=== PATIENT | male | born 1960 | race Caucasian/White ===

== ENCOUNTER 2024-07-04 18:09 | Inpatient (IN) ==
--- NOTE | 2024-07-04 19:10 | Emergency Department Note ---
Impression & Plan Cellulitis of foot associated with diabetes mellitus, Diabetes mellitus type 2 with complications ED Provider Note CHIEF COMPLAINT: Right foot cellulitis HISTORY OF PRESENTING ILLNESS: Patient is a 63-year-old male presents the emergency department today for complaints of right foot cellulitis that is not improving after 2 antibiotics. This started 2 and half weeks ago. The patient is a diabetic and reports a neuropathy in his bilateral feet. He was put on cefadroxil and clarithromycin. He finished the cefadroxil however just started the clarithromycin 2 days ago. He denies any fevers or chills. He denies chest pain, sob, breathing difficulties, abdominal pain, headache, fevers/chills, blood in stool or urine, any recent illness, or any recent travel. REVIEW OF SYSTEMS: See HPI for pertinent positives and pertinent negatives. ALLERGIES: No known allergy MEDICATIONS: See below PAST MEDICAL HISTORY: See above PHYSICAL EXAM: VITALS: Vitals are noted on the nurse's note and reviewed by myself. GENERAL: Non toxic, in no acute distress, non-diaphoretic. SKIN: Capillary refill <2 sec. EYES: PERRLA. EOMI. Conjunctivae without injection, sclerae without icterus. NOSE: Patent without discharge. MOUTH: Mucous membranes moist. Uvula midline. Airway patent. NECK: Supple without nuchal rigidity. HEART: Regular rate and rhythm without murmurs gallops or rubs. LUNGS: Clear to auscultation bilaterally without wheezes, rales or rhonchi. No retractions or accessory muscle use. ABDOMEN: Positive bowel sounds x 4. Normal tympanic percussion. Soft, nontender to palpation. No masses or hepatosplenomegaly. Castanon sign negative. No CVA tenderness. No guarding, rigidity, or rebound tenderness. No focal RLQ or LLQ tenderness. MUSCULOSKELETAL: No gross musculoskeletal defects. NEURO: Patient was alert and oriented. No focal neurological deficits. DIFFERENTIAL DIAGNOSIS: Cellulitis, fracture, sepsis, septic joint, among other. ED COURSE AND MEDICAL DECISION MAKING: HISTORY FROM INDEPENDENT HISTORIAN: History was provided by the patient and his son and his . I examined the patient for complaints of right foot cellulitis. A physical exam and history were performed. Nursing notes, EMR, and medication list were personally reviewed. MEDICATIONS GIVEN: The patient declined anything for pain. MONITOR: Continuous traffic monitor specialist: Order was placed for continuous traffic monitor specialist. Patient was placed on the traffic monitor specialist and continuous pulse ox. Patient was noted to be in normal sinus rhythm at an initial rate of 80 bpm per my interpretation. INTERPRETATION OF LABS: An IV lock was placed and labs were drawn. I interpreted the labs with full lab results as below in the lab section of this note. Laboratory results pertinent to the emergent complaint are discussed in the MDM section below. The patient was advised to follow up with their PCP and/or specialist(s) for further outpatient monitoring and management of any abnormal results. There was no leukocytosis, anemia, thrombocytopenia. Electrolytes and renal function are normal. INTERPRETATION OF IMAGING: Imaging studies were interpreted by myself and read by radiology as per the imaging section of this note. The patient was advised to follow up with their PCP and/or specialist(s) for further outpatient management of any non-emergent abnormal findings. Refer to the right foot x-ray report below. CHRONIC MEDICAL/SOCIAL CONDITIONS AFFECTING CARE: No social concerns were identified as barriers to patients care. ESCALATION OF CARE CONSIDERED: I considered admission on this patient due to cellulitis of the right foot with failure of 2 antibiotics. CONSULTATIONS: I had a meaningful discussion about this patient with Dr. Wright who agrees with my assessment and the treatment plan. [facility] to the [facility]. SUMMARY: The patient was evaluated in the emergency department today for complaints of right foot cellulitis. The patient declined any pain meds today. He does report taking cefadroxil and clarithromycin without any improvement in the cellulitis. See x-ray report below. Patient's white blood cell count is 8.9. [facility]. Patient was accepted by [facility]. The patient is to have close outpatient follow-up with a recheck of their symptoms. To return to the ER sooner for any significantly changing or worsening symptoms. The patient was educated on the treatment plan and the discharge instructions. The patient was discharged home in stable condition and verbalized understanding of all discharge instructions and treatment plan. DIAGNOSIS: Cellulitis to the right foot TREATMENT PLAN/DISCHARGE INSTRUCTIONS: Admit to the hospital by Dr. Darwin Oscar Past Med/Surg History Problem List (Updated 07/05/24 @ 13:19 by JOSE MIGUEL Escobedo) Obesity (BMI 30.0-34.9) Diabetes mellitus type 2 with complications (Acute) Myositis of right foot Abscess of right foot Osteomyelitis of foot, right, acute Cellulitis of foot associated with diabetes mellitus (Acute) Cellulitis Social History Smoking Status: Never smoker Hx Alcohol Use: Yes Alcohol type: beer Hx Substance Use: No Preferred Language: Somali Communication Ability: Effective Toll Service Observer Required: No Beliefs That Will Affect Care: None Current Living Situation: Spouse Other Information That Helps Us Care for You: No Feels Safe at Home: Yes Safety Concerns: Feels Safe At This Time Assistive Devices: Contacts and Glasses Assistive Devices Comment: Glasses and Contacts Allergies Allergies Allergy/AdvReac Type Severity Reaction Status Date / Time No Known Allergies Allergy Unverified 07/04/24 19:15 Home Meds Home Medications Medication Instructions Recorded Confirmed acetaminophen 500 mg tablet 1,000 mg PO Q6H PRN Pain 07/04/24 07/04/24 cefadroxil 500 mg capsule 500 mg PO DAILY 07/04/24 07/04/24 clarithromycin 500 mg tablet 500 mg PO BID 07/04/24 07/04/24 ibuprofen 200 mg tablet (Advil) 400 mg PO Q6H PRN Pain 07/04/24 07/04/24 metformin 500 mg tablet 500 mg PO DAILY 07/04/24 07/04/24 multivitamin with minerals-folic 2 tab PO DAILY 07/04/24 07/04/24 acid 200 mcg chewable tablet (Multivitamin Gummies) Results & Data (ED) Vital Signs Vital Signs - 24 hr 07/04/24 18:23 07/04/24 20:09 07/04/24 20:09 Temperature 36.9 C Temperature Source Skin Pulse Rate 92 H Pulse Rate [Apical] 80 Respiratory Rate 19 20 Respiratory Effort / Characteristics Non-Labored Spontaneous Respiratory Depth Normal Respiratory Pattern Regular Blood Pressure 141/90 H Blood Pressure [Right Arm] 133/81 Blood Pressure Mean 107 Blood Pressure Mean [Right Arm] 98 Pulse Oximetry 98 99 99 Oxygen Delivery Method Room Air Room Air Sepsis Recent Fever Within 48 Hours No Sepsis New/Unexplained Change in Mental Status N/A Sepsis Action Taken by Nursing No Action Required 07/04/24 22:00 Temperature Temperature Source Pulse Rate Pulse Rate [Apical] 82 Respiratory Rate 19 Respiratory Effort / Characteristics Non-Labored Spontaneous Respiratory Depth Normal Respiratory Pattern Regular Blood Pressure Blood Pressure [Right Arm] 134/78 Blood Pressure Mean Blood Pressure Mean [Right Arm] 96 Pulse Oximetry 96 Oxygen Delivery Method Room Air Sepsis Recent Fever Within 48 Hours Sepsis New/Unexplained Change in Mental Status Sepsis Action Taken by Nursing Laboratory Data 07/05/24 06:44 07/05/24 06:44 Lab Results 07/04/24 Range/Units 19:36 WBC 8.98 (4.8-10.8) K/ul RBC 4.66 L (4.70-6.10) M/uL Hgb 13.8 L (14.0-18.0) g/dl Hct 41.0 L (42.0-52.0) % MCV 88.0 (80.0-100.0) fL MCH 29.6 (25.0-34.0) pg MCHC 33.7 (32.0-36.0) g/dL RDW Std Deviation 38.2 (36.4-46.3) fL RDW Coeff of Benji 11.9 (11.5-14.5) % Plt Count 304 (130-400) K/uL MPV 10.4 (9.4-12.4) fL Immature Gran % (Auto) 0.4 % Neut % (Auto) 59.5 % Lymph % (Auto) 26.1 % Henderson % (Auto) 9.7 % Eos % (Auto) 3.6 % Baso % (Auto) 0.7 % Neut # (Auto) 5.35 (1.40-6.50) K/uL Lymph # (Auto) 2.34 (1.20-3.40) K/uL Henderson # (Auto) 0.87 H (0.11-0.59) K/uL Eos # (Auto) 0.32 (0.00-0.50) K/uL Baso # (Auto) 0.06 (0.00-0.20) K/uL Immature Gran # (Auto) 0.04 (0.01-0.20) K/uL Sodium 134 L (136-145) mmol/L Potassium 4.2 (3.5-5.1) mmol/L Chloride 99 (98-107) mmol/L Carbon Dioxide 28 (21-32) mmol/L Anion Gap 7 (3-11) BUN 17 (6-23) mg/dl Creatinine 0.93 (0.6-1.4) mg/dl Est Cr Clr Drug Dosing 122.7 ml/min eGFR 92.27 BUN/Creatinine Ratio 18.3 (10-20) Glucose 198 H (70-99(Fasting)) mg/dl Lactate 1.1 (0.4-2.0) mmol/L Calcium 9.4 (8.6-10.3) mg/dl Total Bilirubin 0.6 (0.2-1.0) mg/dl AST 15 (13-39) U/L ALT 16 (7-52) U/L Alkaline Phosphatase 136 H (34-104) U/L Total Protein 7.0 (6.0-8.3) gm/dl Albumin 3.9 (3.4-5.0) gm/dl Globulin 3.1 (2.5-4.0) gm/dl Albumin/Globulin Ratio 1.3 (0.9-2) Procalcitonin 0.14 (0-0.5) ng/ml Administered Medications Calcium Carbonate (Calcium Carbonate 500 Mg Chewable Tab) 1,500 mg PO QID PRN PRN Reason: Indigestion Stop: 08/04/24 09:06 Last Admin: 07/05/24 09:30 Dose: 1,500 mg Documented By: SANDRA Enoxaparin Sodium (Enoxaparin Inj 40 Mg/0.4 Ml Syr) 40 mg SQ QAM [facility] Stop: 08/04/24 08:59 Last Admin: 07/05/24 08:28 Dose: 40 mg Documented By: SANDRA Piperacillin Sod/Tazobactam Sod (Zosyn) 4.5 gm in 100 mls @ 25 mls/hr IV Q8H [facility]; Protocol Stop: 08/16/24 05:59 Last Infusion: 07/05/24 10:11 Dose: Infused Documented By: Admin: 07/05/24 06:11 Dose: 25 mls/hr Documented By: ODALIS Insulin Aspart (Insulin Aspart Per Unit Charge) 0 units SC ACHS [facility] Stop: 08/03/24 23:51 Last Admin: 07/05/24 08:32 Dose: 6 units Documented By: SANDRA Co-signed By: VAL Admin: 07/05/24 00:17 Dose: 4 units Documented By: ODALIS Co-signed By: LETITIA Insulin Glargine (Lantus Per Unit Charge) 5 units SQ BID [facility] Stop: 08/03/24 23:51 Last Admin: 07/05/24 08:33 Dose: 5 units Documented By: SANDRA Co-signed By: VAL Admin: 07/05/24 00:18 Dose: 5 units Documented By: ODALIS Co-signed By: LETITIA Multivitamins/Minerals (Cerovite Adv Formula Tab) 1 tab PO DAILY [facility] Stop: 08/04/24 08:59 Last Admin: 07/05/24 08:28 Dose: 1 tab Documented By: SANDRA Discontinued Medications Doxycycline Hyclate (Doxycycline Hyclate 100 Mg Cap) 100 mg PO Q12H [facility] Stop: 07/12/24 05:59 Last Admin: 07/05/24 06:11 Dose: 100 mg Documented By: ODALIS Gadobutrol (Gadobutrol 15ml Vial) 15 ml IV ONCE ONE Stop: 07/05/24 02:09 Last Admin: 07/05/24 02:09 Dose: 15 ml Documented By: DEANN Doxycycline Hyclate 100 mg/ (Dextrose) 100 mls @ 50 mls/hr IV NOW STA Stop: 07/04/24 23:46 Last Infusion: 07/05/24 00:32 Dose: Infused Documented By: Admin: 07/04/24 22:22 Dose: 50 mls/hr Documented By: SUSAN Sodium Chloride (Nss) 1,000 mls @ 60 mls/hr IV .[id number] ONE Stop: 07/05/24 14:28 Last Infusion: 07/05/24 09:31 Dose: Infused Documented By: Admin: 07/04/24 22:22 Dose: 60 mls/hr Documented By: SUSAN Cefepime HCl (Maxipime 2000mg) 2,000 mg in 20 mls @ 5 mls/min IV Q8H [facility]; Protocol Stop: 07/11/24 22:59 Last Admin: 07/04/24 23:25 Dose: 5 mls/min Documented By: SUSAN Imaging Data Radiologist's Impression: Foot X-Ray 07/04/24 18:55 EXAM: XR foot RT min 3V routine CLINICAL HISTORY: infection, poss osteo TECHNIQUE: X-ray images of the right foot were obtained in anteroposterior (AP), lateral, and oblique projections. COMPARISON: No prior studies available for comparison. FINDINGS: The head of the second metatarsal is slightly deformed and shows mild sclerosis with reduced metatarsal phalangeal joint space and possible mild subluxation. A subtle cortical thickening is appreciated along the entire second metatarsal. Generalized reduced bone density is appreciated. A tiny bone fragment is appreciated just adjacent to the posterior part of the cuboid bone, evident only on the lateral view. Degenerative changes are appreciated in the bones of the foot evident by marginal osteophytes, plantar calcaneal spur. A small, well-corticated bone fragment/calcific density is appreciated at the upper border of the talus, evident on the oblique view. Mild soft tissue swelling is appreciated at the ankle. The lateral part of the navicular bone shows reduced height and mild sclerosis. Plantar calcaneal spur IMPRESSION: 1. Mildly deformed head of the second metatarsal with mild sclerosis, and a subtle cortical thickening along the rest of the second metatarsal. Reduced second metatarsophalangeal joint space with possible mild subluxation. Clinical correlation is suggested. 2. A tiny bone fragment is appreciated just adjacent to the posterior part of the cuboid bone, evident only on the lateral view. It could be projectional versus an undisplaced fracture. Clinical correlation for the point of tenderness is suggested. 3. The lateral part of the navicular bone shows reduced height and mild sclerosis 4. Generalized osteopenia 5. Mild soft tissue swelling is appreciated at the ankle. 6. Advised MRI if clinically warranted. Disclaimer: A subtle bone abnormality or fracture may not be readily apparent on X-rays, thus clinical correlation and further imaging including follow-up CT, MRI, or follow-up X-rays are advised as needed. Electronically signed by Santiago Mclain 07-04-2024 9:15 PM Discharge Plan Visit Data Chief Complaint: Infection Stated Complaint: RT FOOT INFECTION ED Provider: Jono Wright ED Midlevel Provider: Ya Hernandez Discharge Problem: Cellulitis of foot associated with diabetes mellitus, Diabetes mellitus type 2 with complications Patient Disposition: Admitted As Inpatient Discharge Instructions Interventions: ED Discharge Assessment Last Done: 07/04/24 23:40
[2024-07-04 20:20] LABS: Albumin Globulin Ratio 1.3 (0.9-2); Albumin Level 3.9 gm/dl (3.4-5.0); BUN Creatinine Ratio 18.3 (10-20); Bilirubin,Total 0.6 mg/dl (0.2-1.0); Calcium 9.4 mg/dl (8.6-10.3); Creatinine Clr Calc Pharmacy 122.7 ml/min; Globulin 3.1 gm/dl (2.5-4.0); Potassium 4.2 mmol/L (3.5-5.1)
[2024-07-04 20:45] LABS: Basophils # (auto) 0.06 K/uL (0.00-0.20); Basophils % (auto) 0.7 %; Eosinophils # (auto) 0.32 K/uL (0.00-0.50); Eosinophils % (auto) 3.6 %; Hemoglobin 13.8 g/dl (14.0-18.0); Immature Granulocytes # (auto) 0.04 K/uL (0.01-0.20); Immature Granulocytes % (auto) 0.4 %; Lymphocytes # (auto) 2.34 K/uL (1.20-3.40); Lymphocytes % (auto) 26.1 %; Mean Corpuscular Hemoglobin 29.6 pg (25.0-34.0); Mean Corpuscular Hgb Conc 33.7 g/dL (32.0-36.0); Mean Platelet Volume 10.4 fL (9.4-12.4); Monocytes # (auto) 0.87 K/uL (0.11-0.59); Monocytes % (auto) 9.7 %; Neutrophils # (auto) 5.35 K/uL (1.40-6.50); Neutrophils % (auto) 59.5 %; Platelet Count 304 K/uL (130-400); RDW Coefficient of Variation 11.9 % (11.5-14.5); RDW Standard Deviation 38.2 fL (36.4-46.3); Red Blood Count 4.66 M/uL (4.70-6.10); White Blood Count 8.98 K/ul (4.8-10.8)
--- NOTE | 2024-07-04 21:18 | XRay Report ---
EXAM: XR foot RT min 3V routine CLINICAL HISTORY: infection, poss osteo TECHNIQUE: X-ray images of the right foot were obtained in anteroposterior (AP), lateral, and oblique projections. COMPARISON: No prior studies available for comparison. FINDINGS: The head of the second metatarsal is slightly deformed and shows mild sclerosis with reduced metatarsal phalangeal joint space and possible mild subluxation. A subtle cortical thickening is appreciated along the entire second metatarsal. Generalized reduced bone density is appreciated. A tiny bone fragment is appreciated just adjacent to the posterior part of the cuboid bone, evident only on the lateral view. Degenerative changes are appreciated in the bones of the foot evident by marginal osteophytes, plantar calcaneal spur. A small, well-corticated bone fragment/calcific density is appreciated at the upper border of the talus, evident on the oblique view. Mild soft tissue swelling is appreciated at the ankle. The lateral part of the navicular bone shows reduced height and mild sclerosis. Plantar calcaneal spur IMPRESSION: 1. Mildly deformed head of the second metatarsal with mild sclerosis, and a subtle cortical thickening along the rest of the second metatarsal. Reduced second metatarsophalangeal joint space with possible mild subluxation. Clinical correlation is suggested. 2. A tiny bone fragment is appreciated just adjacent to the posterior part of the cuboid bone, evident only on the lateral view. It could be projectional versus an undisplaced fracture. Clinical correlation for the point of tenderness is suggested. 3. The lateral part of the navicular bone shows reduced height and mild sclerosis 4. Generalized osteopenia 5. Mild soft tissue swelling is appreciated at the ankle. 6. Advised MRI if clinically warranted. Disclaimer: A subtle bone abnormality or fracture may not be readily apparent on X-rays, thus clinical correlation and further imaging including follow-up CT, MRI, or follow-up X-rays are advised as needed. Electronically signed by Santiago Mclain 07-04-2024 9:15 PM
[2024-07-04] MEDS: SODIUM CHLORIDE 0.9% 1,000 ML IV ONE (22:22)
[2024-07-04] MEDS: DOXYCYCLINE HYCLATE 100 MG in DEXTROSE 5% MINI-B 100 ML IV STA (22:22)
--- NOTE | 2024-07-04 22:27 | History & Physical Report ---
Date of Service July 04, 2024 Assessment & Plan (1) Cellulitis: Plan: RLE cellulitis of 2 weeks duration DM2 on oral medications, poorly controlled, hemoglobin A1c of 10.4 last month Failed outpatient treatment Rule out osteomyelitis No sepsis for now History of PVD Rule out LE DVT Hyperlipidemia as per outpatient records, not on statin Rx Admit to [facility], doxycycline and cefepime Right foot MRI RLE arterial and venous Dopplers Offload RLE Podiatry consult Basal bolus insulin, ISS BG goal 110-140, carb count coverage DM education, patient unaware that his DM is poorly controlled given recent HgA1c upon query. DVT prophylaxis per Lovenox subcu Full code Patient family requesting updates providers. Ms. Yulissa Adan (), contact #[phone]. Mr. Ash Adan (son), contact #[phone]. Text document was generated using [employer] voice recognition software. It may contain grammatical or spelling errors. Kindly contact undersigned for clarification of any documentation item in question. History of Present Illness Chief Complaint: Right foot swelling Primary Care Provider: Kayden Camara History obtained from patient, family, and records. Medical history significant for hyperlipidemia as per records, DM2 on oral medications, chronic venous insufficiency. 2 weeks ago, patient noted right lower leg swelling which later moved to the right foot. No bleeding lesions noted. No recollection of trauma. No fever, no chills. No chest pain, no SOB. Patient prescribed oral cefadroxil course by PCP. No improvement after 1 week. New clarithromycin Rx prescribed today. Outpatient [facility] [place] referral contemplated. Patient brought to ER by family for evaluation. 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 Allergies Allergy/AdvReac Type Severity Reaction Status Date / Time No Known Allergies Allergy Unverified 07/04/24 19:15 Home Medications Medication Instructions Recorded Confirmed Type acetaminophen 500 mg tablet 1,000 mg PO Q6H PRN Pain 07/04/24 07/04/24 History cefadroxil 500 mg capsule 500 mg PO DAILY 07/04/24 07/04/24 History clarithromycin 500 mg tablet 500 mg PO BID 07/04/24 07/04/24 History ibuprofen 200 mg tablet (Advil) 400 mg PO Q6H PRN Pain 07/04/24 07/04/24 History metformin 500 mg tablet 500 mg PO DAILY 07/04/24 07/04/24 History multivitamin with minerals-folic 2 tab PO DAILY 07/04/24 07/04/24 History acid 200 mcg chewable tablet (Multivitamin Gummies) Past Med/Surg History Problem List (Updated 07/05/24 @ 03:12 by Shahab Mir MD) Cellulitis Social History Smoking Status: Never smoker Hx Alcohol Use: Yes Alcohol type: beer Hx Substance Use: No Preferred Language: Albanian Communication Ability: Effective Refund Specialist Required: No Beliefs That Will Affect Care: None Current Living Situation: Spouse Other Information That Helps Us Care for You: No Feels Safe at Home: Yes Safety Concerns: Feels Safe At This Time Assistive Devices: Contacts and Glasses Assistive Devices Comment: Glasses and Contacts Review of Systems Review of Systems: As per HPI, all other systems reviewed and negative Physical Exam Physical Exam: GENERAL: Comfortable, obese, slightly anxious, no respiratory distress SKIN: Normal color, warm HEENT: Partial alopecia, pink palpebral conjunctivae, no ptosis, dry buccal mucosa NECK : Supple, no tenderness CHEST : CTA, no tenderness HEART : RRR, no obvious murmurs ABDOMEN: Some distention, nontender EXTREMITIES : RLE swelling with tender right foot induration, palpable pulses, no other conspicuous deformities noted NEUROLOGIC : Coherent, no facial asymmetry, no other gross focality Results & Data Results & Data Vital Signs (Past 12 Hours) Vital Signs Temp Pulse Pulse Resp BP BP Pulse Ox 07/04/24 20:09 99 07/04/24 20:09 80 20 133/81 99 07/04/24 18:23 36.9 C 92 H 19 141/90 H 98 O2 Del Method 07/04/24 20:09 Room Air 07/04/24 20:09 07/04/24 18:23 Room Air Laboratory Results Laboratory Results WBC 8.98 K/ul (4.8-10.8) 07/04/24 19:36 RBC 4.66 M/uL (4.70-6.10) L 07/04/24 19:36 Hgb 13.8 g/dl (14.0-18.0) L 07/04/24 19:36 Hct 41.0 % (42.0-52.0) L 07/04/24 19:36 MCV 88.0 fL (80.0-100.0) 07/04/24 19:36 MCH 29.6 pg (25.0-34.0) 07/04/24 19:36 MCHC 33.7 g/dL (32.0-36.0) 07/04/24 19:36 RDW Std Deviation 38.2 fL (36.4-46.3) 07/04/24 19:36 RDW Coeff of Benji 11.9 % (11.5-14.5) 07/04/24 19:36 Plt Count 304 K/uL (130-400) 07/04/24 19:36 MPV 10.4 fL (9.4-12.4) 07/04/24 19:36 Immature Gran % (Auto) 0.4 % 07/04/24 19:36 Neut % (Auto) 59.5 % 07/04/24 19:36 Lymph % (Auto) 26.1 % 07/04/24 19:36 Rolette % (Auto) 9.7 % 07/04/24 19:36 Eos % (Auto) 3.6 % 07/04/24 19:36 Baso % (Auto) 0.7 % 07/04/24 19:36 Neut # (Auto) 5.35 K/uL (1.40-6.50) 07/04/24 19:36 Lymph # (Auto) 2.34 K/uL (1.20-3.40) 07/04/24 19:36 Rolette # (Auto) 0.87 K/uL (0.11-0.59) H 07/04/24 19:36 Eos # (Auto) 0.32 K/uL (0.00-0.50) 07/04/24 19:36 Baso # (Auto) 0.06 K/uL (0.00-0.20) 07/04/24 19:36 Immature Gran # (Auto) 0.04 K/uL (0.01-0.20) 07/04/24 19:36 Sodium 134 mmol/L (136-145) L 07/04/24 19:36 Potassium 4.2 mmol/L (3.5-5.1) 07/04/24 19:36 Chloride 99 mmol/L (98-107) 07/04/24 19:36 Carbon Dioxide 28 mmol/L (21-32) 07/04/24 19:36 Anion Gap 7 (3-11) 07/04/24 19:36 BUN 17 mg/dl (6-23) 07/04/24 19:36 Creatinine 0.93 mg/dl (0.6-1.4) 07/04/24 19:36 Est Cr Clr Drug Dosing 122.7 ml/min 07/04/24 19:36 eGFR 92.27 07/04/24 19:36 BUN/Creatinine Ratio 18.3 (10-20) 07/04/24 19:36 Glucose 198 mg/dl (70-99(Fasting)) H 07/04/24 19:36 Lactate 1.1 mmol/L (0.4-2.0) 07/04/24 19:36 Calcium 9.4 mg/dl (8.6-10.3) 07/04/24 19:36 Total Bilirubin 0.6 mg/dl (0.2-1.0) 07/04/24 19:36 AST 15 U/L (13-39) 07/04/24 19:36 ALT 16 U/L (7-52) 07/04/24 19:36 Alkaline Phosphatase 136 U/L (34-104) H 07/04/24 19:36 Total Protein 7.0 gm/dl (6.0-8.3) 07/04/24 19:36 Albumin 3.9 gm/dl (3.4-5.0) 07/04/24 19:36 Globulin 3.1 gm/dl (2.5-4.0) 07/04/24 19:36 Albumin/Globulin Ratio 1.3 (0.9-2) 07/04/24 19:36 Procalcitonin 0.14 ng/ml (0-0.5) 07/04/24 19:36 Impressions Foot X-Ray 07/04/24 18:55 EXAM: XR foot RT min 3V routine CLINICAL HISTORY: infection, poss osteo TECHNIQUE: X-ray images of the right foot were obtained in anteroposterior (AP), lateral, and oblique projections. COMPARISON: No prior studies available for comparison. FINDINGS: The head of the second metatarsal is slightly deformed and shows mild sclerosis with reduced metatarsal phalangeal joint space and possible mild subluxation. A subtle cortical thickening is appreciated along the entire second metatarsal. Generalized reduced bone density is appreciated. A tiny bone fragment is appreciated just adjacent to the posterior part of the cuboid bone, evident only on the lateral view. Degenerative changes are appreciated in the bones of the foot evident by marginal osteophytes, plantar calcaneal spur. A small, well-corticated bone fragment/calcific density is appreciated at the upper border of the talus, evident on the oblique view. Mild soft tissue swelling is appreciated at the ankle. The lateral part of the navicular bone shows reduced height and mild sclerosis. Plantar calcaneal spur IMPRESSION: 1. Mildly deformed head of the second metatarsal with mild sclerosis, and a subtle cortical thickening along the rest of the second metatarsal. Reduced second metatarsophalangeal joint space with possible mild subluxation. Clinical correlation is suggested. 2. A tiny bone fragment is appreciated just adjacent to the posterior part of the cuboid bone, evident only on the lateral view. It could be projectional versus an undisplaced fracture. Clinical correlation for the point of tenderness is suggested. 3. The lateral part of the navicular bone shows reduced height and mild sclerosis 4. Generalized osteopenia 5. Mild soft tissue swelling is appreciated at the ankle. 6. Advised MRI if clinically warranted. Disclaimer: A subtle bone abnormality or fracture may not be readily apparent on X-rays, thus clinical correlation and further imaging including follow-up CT, MRI, or follow-up X-rays are advised as needed. Electronically signed by Santiago Mclain 07-04-2024 9:15 PM
[2024-07-04] MEDS ORDERED: PROMETHAZINE 12.5 MG/50.5 ML BAG IV PRN (22:30)
[2024-07-04] MEDS ORDERED: oxyCODONE HCL IR 5 MG TAB (IMMEDIATE RELEASE) PO PRN (22:30)
[2024-07-04] MEDS ORDERED: KETOROLAC TROMETHAMINE 15 MG/ML VIAL IV PRN (22:30)
[2024-07-04] MEDS ORDERED: LORazepam 0.5 MG TAB PO PRN (22:30)
[2024-07-04] MEDS ORDERED: ACETAMINOPHEN 325 MG TAB PO PRN (22:34)
[2024-07-04] MEDS: CEFEPIME 2000MG 2,000 MG/20 ML SYR IV SCH (23:25)
[2024-07-04] MEDS ORDERED: GLUCOSE 40% GEL 15 GM TUBE PO PRN (23:52)
[2024-07-04] MEDS ORDERED: GLUCAGON FOR INJ 1 MG VIAL SQ PRN (23:52)
[2024-07-04] MEDS ORDERED: GLUCOSE 10 TAB/TUBE PO PRN (23:52)
[2024-07-04] MEDS ORDERED: DEXTROSE 50% 50 ML SYRINGE IV PRN (23:52)
[2024-07-04] MEDS ORDERED: CARBOHYDRATES FOR HYPOGLYCEMIA PO PRN (23:52)
[2024-07-05] MEDS: INSULIN ASPART PER UNIT CHARGE SC SCH (00:17)
[2024-07-05] MEDS: LANTUS PER UNIT CHARGE SQ SCH (00:18)
[2024-07-05] MEDS: GADOBUTROL 15ML VIAL IV ONE (02:09)
--- NOTE | 2024-07-05 03:06 | Ultrasound Report ---
EXAM: US arterial duplex LE RT CLINICAL HISTORY: foot infection, hx pvd TECHNIQUE: Static ultrasound images with Grayscale and Doppler were submitted for review. COMPARISON: None. FINDINGS: Few calcified atheromatous plaques are noted along the course of superficial femoral artery causing insignificant luminal stenosis. Peak systolic velocities of various arteries are as below (cm/sec). Common Femoral Artery: 102 cm/sec Proximal Superficial Femoral Artery: 116 cm/sec Mid superficial femoral artery: 125 cm/sec Distal Superficial Femoral Artery: 122.7 cm/sec Proximal Popliteal Artery: 135.4 cm/sec Distal popliteal artery: 113.6 cm/sec Proximal Anterior Tibial Artery: 121 cm/sec Mid anterior tibial artery 101.4 cm/sec Distal Anterior Tibial Artery: 124.8 cm/sec Proximal Posterior Tibial Artery: 110.5 cm/sec Mid Posterior Tibial Artery: 97.2 cm/sec Distal Posterior Tibial Artery: 102.1 cm/sec Proximal Peroneal Artery: 111.4 cm/sec Mid Peroneal Artery: 89.4 cm/sec Distal Peroneal Artery: 110.1 cm/sec Dorsalis pedis artery: 73.3 cm/sec IMPRESSION: 1. No hemodynamically significant stenosis seen. 2. Few calcified atheromatous plaques are noted along the course of superficial femoral artery causing insignificant luminal stenosis. Electronically signed by Ryan Cardoza 07-05-2024 03:05 AM
--- NOTE | 2024-07-05 03:07 | Ultrasound Report ---
EXAM: US venous doppler LE RT CLINICAL HISTORY: swelling TECHNIQUE: Grayscale ultrasound, with and without compression, and color Doppler spectral waveform analysis were performed of the deep veins of the right lower extremity from the level of the common femoral veins to the level of the popliteal veins. The posterior tibial and peroneal veins were also scanned. COMPARISON: None. FINDINGS: Right external iliac, common femoral veins, superficial and femoral veins and popliteal veins are compressible and opacify at color Doppler evaluation with no evidence of deep vein thrombosis. There is no evidence of DVT in the visualized portions of the posterior tibial and peroneal veins. IMPRESSION: 1. Negative for deep vein thrombosis. Electronically signed by Ryan Cardoza 07-05-2024 03:06 AM
--- NOTE | 2024-07-05 03:46 | Magnetic Resonance Report ---
EXAM: MR foot RT wo/w con CLINICAL HISTORY: swelling ro osteomyelitis TECHNIQUE: Multiplanar, multisequence MR imaging of the right foot was performed with and without gadolinium. COMPARISON: None. FINDINGS: Altered marrow signal appearing hyperintense on STIR, hypointense on T1 images and showing heterogeneous enhancement on post-contrast study is noted involving bases of 2nd 3rd 4th and 5th metatarsals, all the visualized tarsal bones, shafts of second, third metatarsals. Few patchy areas of osteolysis are noted involving the second metatarsal head. Subluxation is noted at the level of second metatarsophalangeal joint, with proximal phalanx seen superiorly subluxated. Significant periosseous soft tissue edema is noted involving the entire foot. Mild periosseous collection is noted at the level of second metatarsal and first proximal phalanx. Grade I sprain/edema is noted involving the tarsal plate at the level of second tarsometatarsal joint. Sprain of the adjacent accessory ligaments is also seen. Mild joint effusion is noted at the level of first and second tarsometatarsal joint on most of the intertarsal joints. Mild, intercommunicating, loculated collection is noted deep to the plantar muscles and in the plantar intramuscular compartment as well, likely suggestive of abscess. Diffuse subcutaneous soft tissue edema, fat stranding and fluid is noted, suggestive of cellulitis. Diffuse edema is noted involving almost all the visualized foot muscles. The visualized flexor and extensor tendons are intact. Possible changes of intermetatarsal bursitis is noted at the level of first and second metatarsal. IMPRESSION: 1. Altered marrow signal involving bases of 2nd, 3rd, 4th, 5th metatarsals, all the visualized tarsal bones, shafts of second, third metatarsals. Few patchy areas of osteolysis are noted involving the second metatarsal head. Possibility of osteomyelitis needs consideration. 2. Subluxation is noted at the level of second metatarsophalangeal joint, with proximal phalanx seen superiorly subluxated. 3. Significant periosseous soft tissue edema is noted involving the entire foot. 4. Mild periosseous collection is noted at the level of second metatarsal and first proximal phalanx. 5. Mild joint effusion is noted at the level of first and second tarsometatarsal joint and most of the intertarsal joints. 6. Mild, intercommunicating, loculated collection is noted deep to the plantar muscles and in the plantar inter and intramuscular compartment as well, likely suggestive of abscess. 7. Diffuse subcutaneous soft tissue edema, fat stranding and fluid is noted, suggestive of cellulitis. 8. Diffuse edema is noted involving almost all the visualized foot muscles, suggestive of myositis, likely infective/inflammatory. 9. Possible changes of intermetatarsal bursitis is noted at the level of first and second metatarsal. Electronically signed by Ryan Cardoza 07-05-2024 03:46 AM
--- OUTSIDE RECORDS SUMMARY | 2024-07-05 04:38 | External Medical Summary | Summary of Care ---
Author Name Unknown Organization [facility] Address [address] [facility] [place] [address] Phone [phone] Care Team Providers Care Pnp Name Role Phone Unavailable Primary Care Provider Unavailabl e Reason for Visit * Reason Comments Outpatient Testing Encounter Details Date Type Department Care Team (Late st Contact Info) Description 06/28/2024 10:10 AM EDT Laboratory Laboratory [address] [place] [phone] [facility] Lab [address] [place] [address] DM type 2, not at goal (HCC); Nocturia; Idiopathic peripheral autonomic neuropathy Allergies No known active allergiesdocumented as of this encounter (statuses as of 06/28/2024) Medications BENZONATATE 100 MG PO CAPSIndications:A cute bronchospasm Swallow 1 or 2 pills three times a day as needed for cough. Do not cut, crush, or chew. 50 1 0 Active ALBUTEROL SULFATE HFA 108 MCG/ACT IN AERSIndications:A cute bronchospasm Use two puffs four times a day 1 0 0 Active PREDNISONE 20 MG PO TABSIndications:A cute bronchospasm Take two pills daily with food 10 0 0 Active documented as of this encounter (statuses as of 06/28/2024) Social History Tobacco Use Types Packs/Day Years Used Date Smoking Tobacco: Never Alcohol Use Standard Drinks/Week Comments Yes 0 (1 standard drink = 0.6 oz pur e alcohol) socially Utilities Answer Date Recorded Do you have trouble paying y our heating, water, or electric bill? (Adult - for ages 18 years and over) Not on file 08/18/2023 Is your family able to pay t he heat, water, or electric bill? (Household - for ages 0-17 years) Not on file 08/18/2023 Does your family have access to good internet? (Household - for ages 0-17 years) Not on file 08/18/2023 Social Connections Answer Date Recorded How often do you feel lonely or isolated from those around you? (Adult - for ages 18 years and over) Not on file 08/18/2023 Sex and Gender Information Value Date Recorded Sex Assigned at Not on file Legal Sex Male 5:27 AM EST Gender Identity Not on file Sexual Orientation Not on file documented as of this encounter Plan of Treatment Pending Results Name Type Priority Associated Diagnoses Date /Time LIPID PANEL WITH DIRECT LDL IF TG IS HIGH Lab Routine DM type 2, not at goal ([facility]) Nocturia Idiopathic peripheral autonomic neuropathy 06/28/2024 10:08 AM EDT LDL CHOLESTEROL (DIRECT MEASURE) Lab Routine DM type 2, not at goal ([facility]) Nocturia Idiopathic peripheral autonomic neuropathy 06/28/2024 10:08 AM EDT CBC WITH WBC DIFFERENTIAL Lab Routine DM type 2, not at goal ([facility]) Nocturia Idiopathic peripheral autonomic neuropathy 06/28/2024 10:08 AM EDT COMPREHENSIVE METABOLIC PANEL Lab Routine DM type 2, not at goal ([facility]) Nocturia Idiopathic peripheral autonomic neuropathy 06/28/2024 10:08 AM EDT HEMOGLOBIN A1C Lab Routine DM type 2, not at goal ([facility]) Nocturia Idiopathic peripheral autonomic neuropathy 06/28/2024 10:08 AM EDT PSA Lab Routine DM type 2, not at goal ([facility]) Nocturia Idiopathic peripheral autonomic neuropathy 06/28/2024 10:08 AM EDT CBC Lab Routine DM type 2, not at goal ([facility]) Nocturia Idiopathic peripheral autonomic neuropathy 06/28/2024 10:08 AM EDT DIFFERENTIAL, AUTOMATED Lab Routine DM type 2, not at goal ([facility]) Nocturia Idiopathic peripheral autonomic neuropathy 06/28/2024 10:08 AM EDT Health Maintenance Due Date Last Done Comments Depression Screening 1972 HIV Screening 09/13/1975 Hepatitis C Screening 1978 DTap/Tdap Vaccines (1 - Tdap) 09/13/1979 Pneumococcal Vaccine: 50+ Ye ars (1 of 2 - PCV) 09/13/1979 Cologuard 2005 Colonoscopy 2005 Colorectal Cancer Screening 2005 Fecal Occult Blood Test 2005 Sigmoidoscopy 2005 Zoster Vaccines (1 of 2) 2010 COVID-19 Vaccine (1 - 2023-2 5 season) 2023 Lipid Panel 07/01/2024 07/02/2019 Influenza Vaccine (FLU shot) (Season Ended) 2024 HPV (Gardasil) Vaccine Aged Out No lo nger eligible based on patient's age to complete this topic Hepatitis B Vaccine Aged Out No longe r eligible based on patient's age to complete this topic MENINGOCOCCAL (MENACTRA/MENVEO) Aged Out No longer eligible based on patient's age to complete this topic Meningitis B Vaccine (Bexsero/Trumemba) Aged Out No longer eligible b ased on patient's age to complete this topic documented as of this encounter Medical Devices Not on filedocumented as of this encounter Visit Diagnoses Diagnosis DM type 2, not at goal (HCC) Type II or unspecified type diabetes mellitus without mention of complication, not stated as uncontrolled Nocturia Idiopathic peripheral autonomic neuropathy Idiopathic peripheral autonomic neuropathy, unspecified documented in this encounter
--- OUTSIDE RECORDS SUMMARY | 2024-07-05 04:39 | External Medical Summary ---
Author Name Unknown Address Unknown Organization [id number]:LABORATORY [facility] [place] - [address] [place] [address] Laboratory Report Ordering Provider Test Date Status MEHNAZ KEBEDE 06/28/2024 10:08:41 Final Observation Date Value Abnormality Reference (Units ) Status LDL, (direct) 06/28/2024 10:08:41 119 <=129 (mg/dL) Final LDL Cholesterol Reference Ra nges (mg/dL):
<70 � � Target level for high risk ASCVD patient
<100 � �Optimal for general population
100-129 Near optimal for general population
130-159 Borderline high
160-189 High
>=190 � Very high Performing Location [facility]ATORY [facility] - [address] [place] [address]
--- OUTSIDE RECORDS SUMMARY | 2024-07-05 04:39 | External Medical Summary | Summary of Care ---
Author Name Unknown Organization [facility] Address [address] [facility] [place] [address] Phone [phone] Care Team Providers Care Advertising Executive Name Role Phone Unavailable Primary Care Provider Unavailabl e Reason for Visit * Reason Comments Outpatient Testing Encounter Details Date Type Department Care Team (Late st Contact Info) Description 06/28/2024 10:10 AM EDT Laboratory Laboratory [address] [place] [phone] [facility] Lab [address] [place] [address] DM type 2, not at goal (HCC); [...] Routine DM type 2, not at goal ([facility]) Nocturia Idiopathic peripheral autonomic neuropathy 06/28/2024 10:08 AM EDT LDL CHOLESTEROL (DIRECT MEASURE) Lab Routine DM type 2, not at goal ([facility]) Nocturia Idiopathic peripheral autonomic neuropathy 06/28/2024 10:08 AM EDT CBC WITH WBC DIFFERENTIAL Lab Routine DM type 2, not at goal ([facility]) Nocturia Idiopathic peripheral autonomic neuropathy 06/28/2024 10:08 AM EDT COMPREHENSIVE METABOLIC PANEL Lab Routine DM type 2, not at goal ([facility]) Nocturia Idiopathic peripheral autonomic neuropathy 06/28/2024 10:08 AM EDT HEMOGLOBIN A1C Lab Routine DM type 2, not at goal ([facility]) Nocturia Idiopathic peripheral autonomic neuropathy 06/28/2024 10:08 AM EDT PSA Lab Routine DM type 2, not at goal ([facility]) Nocturia Idiopathic peripheral autonomic neuropathy 06/28/2024 10:08 AM EDT CBC Lab Routine DM type 2, not at goal ([facility]) Nocturia Idiopathic peripheral autonomic neuropathy 06/28/2024 10:08 AM EDT DIFFERENTIAL, AUTOMATED Lab Routine DM type 2, not at goal ([facility]) Nocturia Idiopathic peripheral autonomic neuropathy 06/28/2024 [...]
--- OUTSIDE RECORDS SUMMARY | 2024-07-05 04:39 | External Medical Summary ---
Author Name Unknown Address Unknown Organization [id number]:LABORATORY [facility] [place] - [address] [facility] [address] Laboratory Report Ordering Provider Test Date Status MEHNAZ KEBEDE 06/28/2024 10:08:41 Final Observation Date Value Abnormality Reference (Units ) Status WBC, Total 06/28/2024 10:08:41 8.95 4.00-10.80 (K/uL) Final RBC 06/28/2024 10:08:41 5.03 4.50-5.25 (M/uL) Final Hemoglobin 06/28/2024 10:08:41 15.4 14.0-16.8 (g/dL) Final HCT 06/28/2024 10:08:41 46.1 40.0-48.4 (%) Final MCV 06/28/2024 10:08:41 91.7 82.0-99.5 (fL) Final MCH 06/28/2024 10:08:41 30.6 27.0-34.0 (pg) Final MCHC 06/28/2024 10:08:41 33.4 32.0-36.0 (g/dL) Final RDW 06/28/2024 10:08:41 12.3 11.5-15.5 (%) Final Platelets 06/28/2024 10:08:41 340 140-400 (K/uL) Final MPV 06/28/2024 10:08:41 10.4 6.6-11.1 (fL) Final Nucleated erythrocytes/100 leukocytes [Ratio] in Blood by Automated count 06/28/2024 10:08:41 0 <=0 (/100 WBCs) Final Performing Location LABORATORY [facility] [place] - [address] [place] [address]
--- OUTSIDE RECORDS SUMMARY | 2024-07-05 04:39 | External Medical Summary ---
Author Name Unknown Address Unknown Organization [id number]:LABORATORY [facility] - [address] [place] [address] Laboratory Report Ordering Provider Test Date Status MEHNAZ KEBEDE 06/28/2024 10:08:41 Final Observation Date Value Abnormality Reference (Units ) Status PSA 06/28/2024 10:08:41 2.34 <4.10 (ng/ mL) Final Performing Location [facility] - [address] [place] [address]
--- OUTSIDE RECORDS SUMMARY | 2024-07-05 04:39 | External Medical Summary ---
Author Name Unknown Address Unknown Organization [id number]:[facility] [place] [address] [facility] [address] Laboratory Report Ordering Provider Test Date Status YANDYDELFINA VILCHISALINE 06/28/2024 10:08:41 Final Observation Date Value Abnormality Reference (Units ) Status HbA1C 06/28/2024 10:08:41 10.4 Above high normal 4. 0-5.6 (%) Final The use of HbA1c to monitor glycemic status is based on normal hemoglobin and HbA composition. This test should not be used in patients with abnormal hemoglobin that affects the half life of the red blood cell or the in vivo glycation rates. Glucose, estimated average 06/28/2024 10:08:41 252 Above high normal <126 (mg/dL) Michael moses Performing Location LAB[facility]ATORY [facility] [place] - [address] [facility] [address]
--- OUTSIDE RECORDS SUMMARY | 2024-07-05 04:39 | External Medical Summary ---
Author Name Unknown Address Unknown Organization [id number]:LABORATORY [facility] [place] - [address] [facility] [place] [address] Laboratory Report Ordering Provider Test Date Status MEHNAZ KEBEDE 06/28/2024 10:08:41 Final Observation Date Value Abnormality Reference (Units ) Status BUN 06/28/2024 10:08:41 19 6-20 (mg/dL) Final Creatinine 06/28/2024 10:08:41 0.9 0.6-1.2 (mg/dL) Final Glomerular filtration rate/1.73 sq M.predicted [Volume Rate/Area] in Serum, Plasma or Blood by Creatinine-based formula (CKD-EPI) 06/28/2024 10:08:41 >90 >=60 (mL/min) Final eGFR is calculated based on the CKD-EPI 2020 equation. Sodium 06/28/2024 10:08:41 136 135-146 (m mol/L) Final Potassium 06/28/2024 10:08:41 4.4 3.5-5.1 (m mol/L) Final Cl 06/28/2024 10:08:41 99 98-107 (mm ol/L) Final CO2 06/28/2024 10:08:41 21 Below low normal 22- 32 (mmol/L) Final Anion gap 06/28/2024 10:08:41 16 Above high normal 7- 15 (mmol/L) Final Glucose 06/28/2024 10:08:41 258 Above high normal 70 -120 (mg/dL) Final Albumin 06/28/2024 10:08:41 4.0 3.8-5.0 (g /dL) Final AST (Aspartate aminotransferase) 06/28/2024 10:08:41 17 10-50 (U/L) Fin al Alk Phos 06/28/2024 10:08:41 125 35-130 (U/ L) Final Bilirubin, Total 06/28/2024 10:08:41 0.5 <=1 .2 (mg/dL) Final Calcium 06/28/2024 10:08:41 9.4 8.4-10.2 ( mg/dL) Final Protein 06/28/2024 10:08:41 6.8 6.0-8.3 (g /dL) Final ALT (Alanine aminotransferase) 06/28/2024 10:08:41 21 10-50 (U/L) Michael moses Performing Location LABORATORY [facility] [place] - [address] [facility] [address]
--- OUTSIDE RECORDS SUMMARY | 2024-07-05 04:39 | External Medical Summary ---
Author Name Unknown Address Unknown Organization [id number]:LABORATORY [facility] [place] - [address] [facility] [place] [address] Laboratory Report Ordering Provider Test Date Status MEHNAZ KEBEDE 06/28/2024 10:08:41 Final Observation Date Value Abnormality Reference (Units ) Status Triglyceride 06/28/2024 10:08:41 161 <=174 ( mg/dL) Final Triglyceride Reference Range s (mg/dL):
<150 Acceptable
150-174 Borderline high
175-499 High
>=500 Very high Cholesterol 06/28/2024 10:08:41 193 <200 (mg /dL) Final Total Cholesterol Reference Ranges (mg/dL):
<200 Desirable
200-239 Borderline high
>=240 High HDL 06/28/2024 10:08:41 45 >39 (mg/dL ) Final HDL Cholesterol Reference Ra nges (mg/dL):
>=60 High (Desirable)
<50 Low (Undesirable) For Females
<40 Low (Undesirable) For Males NON-HDL CHOLESTEROL 06/28/2024 10:08:41 148 <=159 (mg/dL) Final Non-HDL Cholesterol Referenc e Range (mg/dL):
<100 Target level for high risk ASCVD patient
<130 Optimal for general population
130-159 Near optimal for general population
160-189 Borderline High
190-219 High
>=220 Very High LDL, (calculated) 06/28/2024 10:08:41 116 <= 129 (mg/dL) Final LDL Cholesterol Reference Ra nges (mg/dL):
<70 Target level for high risk ASCVD patient
<100 Optimal for general population
100-129 Near optimal for general population
130-159 Borderline high
160-189 High
>=190 Very high
Patient has high LDL cholesterol. Consider screening for Familial Hypercholesterolemia. Performing Location LABORATORY [facility] [place] - [facility] [address] [facility] [address]
--- OUTSIDE RECORDS SUMMARY | 2024-07-05 04:39 | External Medical Summary | Summary of Care ---
Author Name Unknown Organization [facility] Address [address] [place] [address] Phone [phone] Care Team Providers Care Centerless Grinder Set Up Operator Name Role Phone Unavailable Primary Care Provider Unavailabl e Encounter Details Date Type Department Care Team ( Contact Info) Description 03/28/2024 Population Health External Data Unspecified Department Allergies No known active allergiesdocumented as of this encounter (statuses as of 03/28/2024) Medications BENZONATATE 100 MG PO CAPSIndications:A cute [...] as of this encounter (statuses as of 03/28/2024) Social History Tobacco Use Types Packs/Day Years [...] as of this encounter Plan of Treatment Health Maintenance Due Date Last Done Comments Depression Screening 1972 HIV Screening 09/13/1975 Hepatitis C Screening 1978 DTap/Tdap Vaccines (1 - Tdap) 09/13/1979 Cologuard 2005 Colonoscopy 2005 Colorectal Cancer Screening 2005 Fecal Occult Blood Test 2005 Sigmoidoscopy 2005 Pneumococcal Vaccine: 50+ Ye ars (1 of 1 - PCV) 2010 Zoster Vaccines (1 of 2) 2010 COVID-19 Vaccine ( - 2023-2 5 season) 2023 Influenza Vaccine (FLU shot) (#1) 2023 Lipid Panel 07/01/2024 07/02/2019 HPV (Gardasil) Vaccine Aged Out No lo nger eligible based on patient's age to complete this topic Hepatitis B Vaccine Aged Out No longe r eligible based on patient's age to complete this topic MENINGOCOCCAL (MENACTRA/MENVEO) Aged Out No longer eligible based on patient's age to complete this topic Pneumococcal Vaccine: Pediat rics (0 to 5 Years) and At-Risk Patients (6 to 18 Years and 19+ Years) Aged Out No longer eligible b ased on patient's age to complete this topic documented as of this encounter Medical Devices Not on filedocumented as of this encounter
--- OUTSIDE RECORDS SUMMARY | 2024-07-05 04:39 | External Medical Summary ---
Author Name Unknown Address Unknown Organization [id number]:LABORATORY [facility] [place] - [address] [facility] [place] [address] Laboratory Report Ordering Provider Test Date Status MEHNAZ KEBEDE 06/28/2024 10:08:41 Final Observation Date Value Abnormality Reference (Units ) Status SYNC LEUKOCYTES IN BLOOD BY AUTOMATED COUNT 06/28/2024 10:08:41 8.95 4.00-10.80 (K/uL) Final Segs 06/28/2024 10:08:41 68.8 40.0-75.0 (%) Final Lymphs % 06/28/2024 10:08:41 18.1 18.0-42.0 (%) Final Monos 06/28/2024 10:08:41 9.4 1.0-11.0 (%) Final Eosinophils 06/28/2024 10:08:41 2.5 0.0-6.0 (%) Final Basos 06/28/2024 10:08:41 0.8 0.0-2.0 (%) Final Immature Granulocyte, Percent 06/28/2024 10:08:41 0.4 0.0-2.0 (%) Final Absolute Segs 06/28/2024 10:08:41 6.16 1.80-7.70 (K/uL) Final Lymphs, absolute 06/28/2024 10:08:41 1.62 1.00-4.80 (K/ul) Final Monos, Abs 06/28/2024 10:08:41 0.84 0.00-1.10 (K/uL) Final Eos, Abs 06/28/2024 10:08:41 0.22 0.00-0.70 (K/uL) Final Basos, Abs 06/28/2024 10:08:41 0.07 0.00-0.20 (K/uL) Final Immature Granulocytes, Number 06/28/2024 10:08:41 0.04 0.00-0.20 (K/uL) Final Performing Location LABORATORY [facility] [place] - [address] [facility] [address]
--- NOTE | 2024-07-05 05:20 | Communication Note ---
Date of Service: July 05, 2024 Right foot MRI results noted 1. Altered marrow signal involving bases of 2nd, 3rd, 4th, 5th metatarsals, all the visualized tarsal bones, shafts of second, third metatarsals. Few patchy areas of osteolysis are noted involving the second metatarsal head. Possibility of osteomyelitis needs consideration. 2. Subluxation is noted at the level of second metatarsophalangeal joint, with proximal phalanx seen superiorly subluxated. 3. Significant periosseous soft tissue edema is noted involving the entire foot. 4. Mild periosseous collection is noted at the level of second metatarsal and first proximal phalanx. 5. Mild joint effusion is noted at the level of first and second tarsometatarsal joint and most of the intertarsal joints. 6. Mild, intercommunicating, loculated collection is noted deep to the plantar muscles and in the plantar inter and intramuscular compartment as well, likely suggestive of abscess. 7. Diffuse subcutaneous soft tissue edema, fat stranding and fluid is noted, suggestive of cellulitis. 8. Diffuse edema is noted involving almost all the visualized foot muscles, suggestive of myositis, likely infective/inflammatory. 9. Possible changes of intermetatarsal bursitis is noted at the level of first and second metatarsal. AP Right foot abscess/possible osteomyelitis Zosyn in place of cefepime Continue doxycycline Await podiatry input
[2024-07-05] MEDS: PIPERACILLIN/TAZOBACTAM 4.5 GM/100 ML BAG IV SCH (06:11)
[2024-07-05] MEDS: DOXYCYCLINE HYCLATE 100 MG CAP PO SCH (06:11)
[2024-07-05 07:10] LABS: Basophils # (auto) 0.05 K/uL (0.00-0.20); Basophils % (auto) 0.7 %; Eosinophils # (auto) 0.31 K/uL (0.00-0.50); Eosinophils % (auto) 4.3 %; Hematocrit (blood only) 35.6 % (42.0-52.0); Hemoglobin 12.4 g/dl (14.0-18.0); Immature Granulocytes # (auto) 0.03 K/uL (0.01-0.20); Immature Granulocytes % (auto) 0.4 %; Lymphocytes # (auto) 1.85 K/uL (1.20-3.40); Lymphocytes % (auto) 25.4 %; Mean Corpuscular Hgb Conc 34.8 g/dL (32.0-36.0); Mean Platelet Volume 9.9 fL (9.4-12.4); Monocytes # (auto) 0.72 K/uL (0.11-0.59); Monocytes % (auto) 9.9 %; Neutrophils # (auto) 4.33 K/uL (1.40-6.50); Neutrophils % (auto) 59.3 %; Platelet Count 267 K/uL (130-400); RDW Standard Deviation 37.9 fL (36.4-46.3); Red Blood Count 4.14 M/uL (4.70-6.10); White Blood Count 7.29 K/ul (4.8-10.8)
[2024-07-05 07:32] LABS: BUN Creatinine Ratio 18.5 (10-20); Calcium 8.7 mg/dl (8.6-10.3); Creatinine Clr Calc Pharmacy 175.6 ml/min; Potassium 4.1 mmol/L (3.5-5.1)
--- NOTE | 2024-07-05 08:27 | Podiatry Consultation ---
Date of Consultation July 05, 2024 Assessment & Plan (1) Diabetes mellitus type 2 with complications: (2) Cellulitis of foot associated with diabetes mellitus: (3) Abscess of right foot: (4) Myositis of right foot: (5) Obesity (BMI 30.0-34.9): Plan Diabetic foot infection right: -Plain film radiograph and MRI results of the right foot reviewed with possible abscess and/or osteomyelitis noted on MRI. -Noninvasive vascular studies reviewed showing "no hemodynamically significant stenosis seen. -No leukocytosis, procalcitonin within normal limits. Order placed for ESR and CRP. -Order: High tide Cam walker right foot Development of diabetic foot infection without direct extension is uncommon. Differential diagnosis includes Charcot neuroarthropathy of the forefoot with dislocation of the second metatarsophalangeal joint however the pattern of erythema and edema to the dorsal and lateral foot is somewhat more aggressive than I would expect to see in Charcot neuroarthropathy. This in conjunction with the location of possible abscess noted on MRI and history of ulceration subsecond metatarsal head making diabetic foot infection more probable. - Plan for I&D of right foot with bone biopsy and second metatarsal as needed. Possible antibiotic bead placement. Will collect deep cultures intraoperatively. - N.p.o. at midnight History of Present Illness Reason for Consultation: Cellulitis right foot possible abscess/osteomyelitis Attending Physician: Bishnu Gill DO History of Present Illness 63-year-old male from [facility] seen resting comfortably at bedside with present in room. 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 Presents to [facility] emergency department with increased redness and swelling to the right foot which has not improved with outpatient oral antibiotic therapy. 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 Patient has long history of diabetic peripheral neuropathy with loss of protective sensation to the bilateral foot. He reports history of a ulceration subsecond metatarsal head right foot approximately 4 years ago which required surgical debridement and IV antibiotics along with several months of wound care at the wound care clinic in [place] prior to resolution. Denies any recurrent ulceration to the right foot in the past 4 years. Approximately 3 weeks ago he noticed some redness and swelling in the right leg which then seem to travel to the right foot. He has had persistent increased redness and swelling to the right foot for the past 2-1/2 weeks. Denies nausea vomiting fever chills. White blood count 7.29, procalcitonin 0.14. X-ray of the right foot showed deformity of the second metatarsal head with mild sclerosis and cortical thickening along the metatarsal shaft. MRI concerning for abscess and possible osteomyelitis. Allergies Allergy/AdvReac Type Severity Reaction Status Date / Time No Known Allergies Allergy Unverified 07/04/24 19:15 Home Medications Medication Instructions Recorded Confirmed Type acetaminophen 500 mg tablet 1,000 mg PO Q6H PRN Pain 07/04/24 07/04/24 History cefadroxil 500 mg capsule 500 mg PO DAILY 07/04/24 07/04/24 History clarithromycin 500 mg tablet 500 mg PO BID 07/04/24 07/04/24 History ibuprofen 200 mg tablet (Advil) 400 mg PO Q6H PRN Pain 07/04/24 07/04/24 History metformin 500 mg tablet 500 mg PO DAILY 07/04/24 07/04/24 History multivitamin with minerals-folic 2 tab PO DAILY 07/04/24 07/04/24 History acid 200 mcg chewable tablet (Multivitamin Gummies) Patient History Social History Smoking Status: Never smoker Hx Alcohol Use: Yes Alcohol type: beer Hx Substance Use: No Preferred Language: Mohawk Communication Ability: Effective Quality Control Technician Required: No Beliefs That Will Affect Care: None Current Living Situation: Spouse Other Information That Helps Us Care for You: No Feels Safe at Home: Yes Safety Concerns: Feels Safe At This Time Assistive Devices: None Assistive Devices Comment: Glasses and Contacts Review of Systems Review of Systems: Patient denies nausea, vomiting, fever, chills, shortness of breath, chest pain, right foot pain. Only complaint is increased redness and swelling in the right foot and leg. All other systems reviewed and negative unless stated in HPI. Physical Exam Physical Exam: Const: Appears well developed and well nourished. No signs of acute distress present. CV: Extremities: No cyanosis Capillary refill time is less than 2 seconds all digits of the bilateral foot. Posterior tibial and dorsalis pedis pulses are palpable bilateral. Lymph: No palpable or visible regional lymphadenopathy. Skin: Well-healed cicatrix plantar right foot subsecond metatarsal head. Neuro: Loss of protective sensation bilateral foot and ankle Psych: Mood/Affect: Mood is normal. Affect is normal. Cognition: Orientation is intact to person, place and time. Focused lower extremity musculoskeletal exam: Leg: No pain with compression of the calf muscle. Ankles: Normal to inspection and palpation. Pitting edema right distal leg and ankle. No tenderness bilaterally. Motor strength is intact. Range of motion pain-free and unlimited. Feet: Left foot: Normal to inspection and palpation. No obvious instability. Motor strength is intact. Range of motion pain-free and unlimited. Right foot: No open wound. Erythema and edema isolated to the dorsal forefoot just proximal to the toes extending along the lateral foot to the ankle. Results & Data Vital Signs (Past 12 Hours) Vital Signs Temp Pulse Pulse Resp BP Pulse Ox O2 Del Method 07/05/24 07:16 36.8 C 80 18 154/80 H 95 Room Air 07/04/24 22:30 36.9 C 92 H 16 135/87 100 Room Air 07/04/24 22:00 82 19 134/78 96 Room Air Diagnostic Findings Duplex lower extremity arterial study 07/04/2024: IMPRESSION: 1. No hemodynamically significant stenosis seen. 2. Few calcified atheromatous plaques are noted along the course of superficial femoral artery causing insignificant luminal stenosis. Electronically signed by Ryan Cardoza 07-05-2024 03:05 AM MRI right foot 07/05/2024: IMPRESSION: 1. Altered marrow signal involving bases of 2nd, 3rd, 4th, 5th metatarsals, all the visualized tarsal bones, shafts of second, third metatarsals. Few patchy areas of osteolysis are noted involving the second metatarsal head. Possibility of osteomyelitis needs consideration. 2. Subluxation is noted at the level of second metatarsophalangeal joint, with proximal phalanx seen superiorly subluxated. 3. Significant periosseous soft tissue edema is noted involving the entire foot. 4. Mild periosseous collection is noted at the level of second metatarsal and first proximal phalanx. 5. Mild joint effusion is noted at the level of first and second tarsometatarsal joint and most of the intertarsal joints. 6. Mild, intercommunicating, loculated collection is noted deep to the plantar muscles and in the plantar inter and intramuscular compartment as well, likely suggestive of abscess. 7. Diffuse subcutaneous soft tissue edema, fat stranding and fluid is noted, suggestive of cellulitis. 8. Diffuse edema is noted involving almost all the visualized foot muscles, suggestive of myositis, likely infective/inflammatory. 9. Possible changes of intermetatarsal bursitis is noted at the level of first and second metatarsal. PG Care Time/CCT Total # of Minutes Spent Total Time Spent with Patient: Total time spent is greater than 50% in coordination of care (as documented) at patient's floor/unit and/or counseling patient: Coding Level of Care Code 29233 INT INP/OBS CARE 3/75MIN History Comprehensive Exam Comprehensive Medical Decision Making High Complexity Diagnoses Diabetes mellitus type 2 with complications E11.8 Cellulitis of foot associated with diabetes mellitus E11.628; L03.119 Abscess of right foot L02.611 Myositis of right foot M60.871 Obesity (BMI 30.0-34.9) E66.811
[2024-07-05] MEDS: CEROVITE ADV FORMULA TAB PO SCH (08:28)
[2024-07-05] MEDS: ENOXAPARIN INJ 40 MG/0.4 ML SYR SQ SCH (08:28)
[2024-07-05] MEDS: CALCIUM CARBONATE 500 MG CHEWABLE TAB PO PRN (09:30)
--- NOTE | 2024-07-05 11:28 | Hospitalist Progress Note ---
Date of Service July 05, 2024 Assessment & Plan (1) Cellulitis of foot associated with diabetes mellitus: (2) Osteomyelitis of foot, right, acute: (3) Abscess of right foot: (4) Myositis of right foot: (5) Diabetes mellitus type 2 with complications: (6) Obesity (BMI 30.0-34.9): Plan Patient with right foot cellulitis, abscess, osteomyelitis, myositis in the setting of diabetes mellitus. Continue broad-spectrum IV antibiotics Monitor blood cultures Await podiatry consultation. Highly suspect patient will need at minimum I&D, bone biopsy. Shared my concern the patient may need surgical intervention Anticipate patient to very least will also need long-term IV antibiotics, will consult infectious disease for recommendations Continue to monitor glucose with insulin management Pain control as needed Updated patient's son, Ash. He commented that he would update the patient's . Admission and Anticipated Discharge Date Admission Date: July 04, 2024 Subjective Patient denies any significant pain in his right foot. States that all this seems to come on quite suddenly. Physical Exam Physical Exam: Constitutional: Alert, nontoxic HEENT: Mucous membranes moist. Lungs: Clear to auscultation, decreased, no wheezes rales or rhonchi CV: S1-S2, regular Abdomen: Soft, nontender, nondistended Extremities:Right foot swollen, erythema, warmth on the lateral aspect of the foot and around the lateral malleolus, potentially slightly improved based on markings of ink outlining the erythema. Some fluctuance on the side and bottom of the foot Neuro: No focal deficits Psych: Cooperative, normal mood Results & Data Results & Data Vital Signs (Past 12 Hours) Vital Signs Temp Pulse Resp BP Pulse Ox O2 Del Method 07/05/24 07:16 36.8 C 80 18 154/80 H 95 Room Air Diagnostic Findings Reviewed imaging, laboratory and diagnostic studies. Pertinent findings as bel ow. MRI of the foot consistent with probable osteomyelitis of the metatarsals, concern for abscess collection, evidence of myositis and cellulitis Venous Doppler negative for DVT Arterial Doppler negative for significant stenosis WBCs 7.2 Hemoglobin 12.4 Electrolytes stable Creatinine 0.65 Glucose was reviewed Procalcitonin 0.14
[2024-07-05] MEDS ORDERED: ACETAMINOPHEN 325 MG TAB PO PRN (11:35)
[2024-07-05] MEDS ORDERED: Nursing to Pharmacy Communication SCH (21:15)
[2024-07-06] MEDS: INSULIN ASPART PER UNIT CHARGE SC SCH ×2 (00:48→20:48)
[2024-07-06 08:47] LABS: Hematocrit (blood only) 37.8 % (42.0-52.0); Hemoglobin 12.9 g/dl (14.0-18.0); Mean Corpuscular Hemoglobin 30.4 pg (25.0-34.0); Mean Corpuscular Hgb Conc 34.1 g/dL (32.0-36.0); Mean Corpuscular Volume 88.9 fL (80.0-100.0); Mean Platelet Volume 9.7 fL (9.4-12.4); Platelet Count 266 K/uL (130-400); RDW Coefficient of Variation 11.9 % (11.5-14.5); RDW Standard Deviation 38.7 fL (36.4-46.3); Red Blood Count 4.25 M/uL (4.70-6.10); White Blood Count 7.11 K/ul (4.8-10.8)
[2024-07-06 09:05] LABS: BUN Creatinine Ratio 17.6 (10-20); Calcium 8.8 mg/dl (8.6-10.3); Creatinine Clr Calc Pharmacy 134.3 ml/min; Potassium 4.4 mmol/L (3.5-5.1)
--- NOTE | 2024-07-06 11:26 | Infectious Disease Consult ---
Date of Service July 06, 2024 Telehealth Information I performed this visit using a real-time telehealth connection between my location and the patients location ([facility]). After connecting through interactive tele-video, patient was identified by name and date of and/or wristband check.Patient (or authorized healthcare artist's representative) was informed that this was a telemedicine visit and it was being conducted confidentially over secure lines. My office door was closed and no one else was present in the room with me.Patient (or authorized healthcare artist's representative) provided consent to proceed with the visit, expressed an understanding of privacy and security of the telemedicine visit, and gave permission to have a hospital artist's representative in the room in order to assist with the visit and to conduct portions of the visit, as needed. I informed the patient (or authorized healthcare artist's representative) that I reviewed their record and presented the opportunity for them to ask any questions regarding the visit today. The patient agreed to participate. Assessment & Plan (1) Cellulitis of foot associated with diabetes mellitus: (2) Osteomyelitis of foot, right, acute: (3) Abscess of right foot: (4) Diabetes mellitus type 2 with complications: (5) Obesity (BMI 30.0-34.9): Plan - continue treating with IV Zosyn 4.5 g q.8h - start treating with IV vancomycin (dosed per pharmacy) - patient is scheduled for I and D today ( suggested to get bone cultures ) - we will continue to follow the cultures from [place] - final antibiotic recommendations remain pending - Infectious Disease will continue to follow the patient History of Present Illness History of Present Illness The patient is a 63-year-old male with a history of type 2 diabetes mellitus, diabetic peripheral neuropathy, and obesity, who presents with increased redness and swelling of the right foot. Approximately three weeks ago, he noticed some redness and swelling in the right lower leg, which subsequently progressed to the right foot over the past two and a half weeks. Despite an initial course of oral cefadroxil prescribed by his primary care provider, there was no improvement in his symptoms. The patient reports no history of trauma, fever, or chills. He has a significant history of a foot ulcer under the second metatarsal head of the right foot approximately four years ago, which required surgical debridement and intravenous antibiotics, followed by several months of wound care. He denies any recurrent ulceration in the past four years. On examination in the emergency department,notable swelling of the right lower extremity and tender induration of the right foot was noted. Imaging studies, including an MRI, suggest the presence of an abscess and possible osteomyelitis, with significant periosseous soft tissue edema and cellulitis. The patient has a long-standing history of diabetic peripheral neuropathy with loss of protective sensation in both feet. Podiatry was consulted and they think that differential diagnosis includes a diabetic foot infection, with a consideration of Charcot neuroarthropathy, although the pattern of erythema and edema is more aggressive than typically seen in Charcot's. An incision and drainage of the right foot with possible bone biopsy and antibiotic bead placement is planned, along with the collection of deep cultures intraoperatively for today (07/06/2024). Currently patient is on cefadroxil and clarithromycin? The patient is afebrile with a temperature of 36.7C, hemodynamically stable, a nd shows no signs of leukocytosis (WBC count at 7.11 today). Blood cultures taken on 07/04/24 show no growth to date. Allergies Allergy/AdvReac Type Severity Reaction Status Date / Time No Known Allergies Allergy Unverified 07/04/24 19:15 Home Medications Medication Instructions Recorded Confirmed Type acetaminophen 500 mg tablet 1,000 mg PO Q6H PRN Pain 07/04/24 07/04/24 History cefadroxil 500 mg capsule 500 mg PO DAILY 07/04/24 07/04/24 History clarithromycin 500 mg tablet 500 mg PO BID 07/04/24 07/04/24 History ibuprofen 200 mg tablet (Advil) 400 mg PO Q6H PRN Pain 07/04/24 07/04/24 History metformin 500 mg tablet 500 mg PO DAILY 07/04/24 07/04/24 History multivitamin with minerals-folic 2 tab PO DAILY 07/04/24 07/04/24 History acid 200 mcg chewable tablet (Multivitamin Gummies) Patient History Social History Smoking Status: Never smoker Hx Alcohol Use: Yes Alcohol type: beer Hx Substance Use: No Preferred Language: Vietnamese Communication Ability: Effective Fashion Marketer Required: No Beliefs That Will Affect Care: None Current Living Situation: Spouse Other Information That Helps Us Care for You: No Feels Safe at Home: Yes Safety Concerns: Feels Safe At This Time Assistive Devices: None Assistive Devices Comment: Glasses and Contacts Review of Systems Constitutional: No Weight Change, No Fever, No Chills, No Night Sweats, No Fatigue, No Malaise ENT/Mouth: No Hearing Changes, No Ear Pain, No Nasal Congestion, No Sinus Pain, No Hoarseness, No sore throat, No Rhinorrhea, No Swallowing Difficulty Eyes: No Eye Pain, No Swelling, No Redness, No Foreign Body, No Discharge, No Vision Changes Cardiovascular: No Chest Pain, No SOB, No PND, No Dyspnea on Exertion, No Orthopnea, No Claudication, No Edema, No Palpitations Respiratory: No Cough, No Sputum, No Wheezing, No Smoke Exposure, No Dyspnea Gastrointestinal: No Nausea, No Vomiting, No Diarrhea, No Constipation, No Pain, No Heartburn, No Anorexia, No Dysphagia, No Hematochezia, No Melena, No Flatulence, No Jaundice Genitourinary: No Dysmenorrhea, No DUB, No Dyspareunia, No Dysuria, No Urinary Frequency, No Hematuria, No Urinary Incontinence, No Urgency, No Flank Pain, No Urinary Flow Changes, No Hesitancy Musculoskeletal: No Arthralgias, No Myalgias, No Joint Swelling, No Joint Stiffness, No Back Pain, No Neck Pain, No Injury History Skin: No Skin Lesions, No Pruritis, No Hair Changes, No Breast/Skin Changes, No Nipple Discharge Neuro: No Weakness, No Numbness, No Paresthesias, No Loss of Consciousness, No Syncope, No Dizziness, No Headache, No Coordination Changes, No Recent Falls Psych: No Anxiety/Panic, No Depression, No Insomnia, No Personality Changes, No Delusions, No Rumination, No SI/HI/AH/VH, No Social Issues, No Memory Changes, No Violence/Abuse Hx., No Eating Concerns Heme/Lymph: No Bruising, No Bleeding, No Transfusions History, No Lymphadenopathy Endocrine: No Polyuria, No Polydipsia, No Temperature Intolerance Physical Exam VITALS: Reviewed. WEIGHT/BMI reviewed. GEN: Healthy appearing, well-developed, NAD. PSYCH: Good Judgment. AOx3. Normal memory, mood, and affect. HEENT -Head: NC/AT; -Eyes: PERRL, EOMI. No discharge or redness; -Ears: External ears are normal. Normal TMs. -Nose: Normal nares. -Mouth and throat: MMM. Normal gums, mucosa, palate,. Good dentition. NECK: Supple, with no masses. CV: RRR, no m/r/g. LUNGS: CTAB, no w/r/c. ABD: Soft, NT/ND, NBS, no masses or organomegaly. : N/A SKIN: Warm, well perfused. No skin rashes or abnormal lesions. MSK: swelling of the right lower extremity and tender induration of the right foot was noted EXT: No clubbing, cyanosis, or edema. NEURO: Ambulating with no limitations. Normal muscle strength and tone. No focal deficits. Results & Data Vital Signs (Past 12 Hours) Vital Signs Temp Pulse Resp BP Pulse Ox O2 Del Method 07/06/24 09:48 Room Air 07/06/24 07:12 36.7 C 80 18 130/68 94 Room Air Laboratory Results 07/04/24 20:23 Aerobic Blood Culture - Preliminary Blood No growth in Aerobic bottle after 24 hours. Anaerobic Blood Culture - Preliminary No growth in Anaerobic bottle after 24 hours. 07/04/24 19:36 Aerobic Blood Culture - Preliminary Blood No growth in Aerobic bottle after 24 hours. Anaerobic Blood Culture - Preliminary No growth in Anaerobic bottle after 24 hours. 07/06/24 07/06/24 07/06/24 08:34 06:04 00:10 WBC 7.11 RBC 4.25 L Hgb 12.9 L Hct 37.8 L MCV 88.9 MCH 30.4 MCHC 34.1 RDW Std Deviation 38.7 RDW Coeff of Benji 11.9 Plt Count 266 MPV 9.7 ESR Sodium 137 Potassium 4.4 Chloride 102 Carbon Dioxide 30 Anion Gap 5 BUN 15 Creatinine 0.85 Est Cr Clr Drug Dosing 134.3 eGFR 97.64 BUN/Creatinine Ratio 17.6 Glucose 179 H POC Glucose 160 H 174 H Calcium 8.8 C-Reactive Protein 07/05/24 07/05/24 07/05/24 20:19 16:52 16:49 WBC RBC Hgb Hct MCV MCH MCHC RDW Std Deviation RDW Coeff of Benji Plt Count MPV ESR 64 H Sodium Potassium Chloride Carbon Dioxide Anion Gap BUN Creatinine Est Cr Clr Drug Dosing eGFR BUN/Creatinine Ratio Glucose POC Glucose 199 H 165 H Calcium C-Reactive Protein 10.71 H 07/05/24 11:56 WBC RBC Hgb Hct MCV MCH MCHC RDW Std Deviation RDW Coeff of Benji Plt Count MPV ESR Sodium Potassium Chloride Carbon Dioxide Anion Gap BUN Creatinine Est Cr Clr Drug Dosing eGFR BUN/Creatinine Ratio Glucose POC Glucose 232 H Calcium C-Reactive Protein Diagnostic Findings EXAM: MR foot RT wo/w con CLINICAL HISTORY: swelling ro osteomyelitis TECHNIQUE: Multiplanar, multisequence MR imaging of the right foot was performed with and without gadolinium. COMPARISON: None. FINDINGS: Altered marrow signal appearing hyperintense on STIR, hypointense on T1 images and showing heterogeneous enhancement on post-contrast study is noted involving bases of 2nd 3rd 4th and 5th metatarsals, all the visualized tarsal bones, shafts of second, third metatarsals. Few patchy areas of osteolysis are noted involving the second metatarsal head. Subluxation is noted at the level of second metatarsophalangeal joint, with proximal phalanx seen superiorly subluxated. Significant periosseous soft tissue edema is noted involving the entire foot. Mild periosseous collection is noted at the level of second metatarsal and first proximal phalanx. Grade I sprain/edema is noted involving the tarsal plate at the level of second tarsometatarsal joint. Sprain of the adjacent accessory ligaments is also seen. Mild joint effusion is noted at the level of first and second tarsometatarsal joint on most of the intertarsal joints. Mild, intercommunicating, loculated collection is noted deep to the plantar muscles and in the plantar intramuscular compartment as well, likely suggestive of abscess. Diffuse subcutaneous soft tissue edema, fat stranding and fluid is noted, suggestive of cellulitis. Diffuse edema is noted involving almost all the visualized foot muscles. The visualized flexor and extensor tendons are intact. Possible changes of intermetatarsal bursitis is noted at the level of first and second metatarsal. IMPRESSION: 1. Altered marrow signal involving bases of 2nd, 3rd, 4th, 5th metatarsals, all the visualized tarsal bones, shafts of second, third metatarsals. Few patchy areas of osteolysis are noted involving the second metatarsal head. Possibility of osteomyelitis needs consideration. 2. Subluxation is noted at the level of second metatarsophalangeal joint, with proximal phalanx seen superiorly subluxated. 3. Significant periosseous soft tissue edema is noted involving the entire foot. 4. Mild periosseous collection is noted at the level of second metatarsal and first proximal phalanx. 5. Mild joint effusion is noted at the level of first and second tarsometatarsal joint and most of the intertarsal joints. 6. Mild, intercommunicating, loculated collection is noted deep to the plantar muscles and in the plantar inter and intramuscular compartment as well, likely suggestive of abscess. 7. Diffuse subcutaneous soft tissue edema, fat stranding and fluid is noted, suggestive of cellulitis. 8. Diffuse edema is noted involving almost all the visualized foot muscles, suggestive of myositis, likely infective/inflammatory. 9. Possible changes of intermetatarsal bursitis is noted at the level of first and second metatarsal. Electronically signed by Ryan Cardoza 07-05-2024 03:46 AM Medications Administered Home Medications Medication Instructions Recorded Confirmed Last Taken acetaminophen 500 mg tablet 1,000 mg PO Q6H PRN Pain 07/04/24 07/04/24 Unknown cefadroxil 500 mg capsule 500 mg PO DAILY 07/04/24 07/04/24 07/04/24 clarithromycin 500 mg tablet 500 mg PO BID 07/04/24 07/04/24 07/04/24 ibuprofen 200 mg tablet (Advil) 400 mg PO Q6H PRN Pain 07/04/24 07/04/24 07/04/24 metformin 500 mg tablet 500 mg PO DAILY 07/04/24 07/04/24 07/04/24 multivitamin with minerals-folic 2 tab PO DAILY 07/04/24 07/04/24 07/04/24 acid 200 mcg chewable tablet (Multivitamin Gummies) Active Medications Generic Name Dose Route Start Last Admin Trade Name Freq PRN Reason Stop Dose Admin Calcium Carbonate 1,500 mg 07/05/24 09:07 07/05/24 09:30 Calcium Carbonate 500 Mg Chewable Tab PO 08/04/24 09:06 1,500 mg QID PRN Administration Indigestion Enoxaparin Sodium 40 mg 07/05/24 09:00 07/06/24 08:23 Enoxaparin Inj 40 Mg/0.4 Ml Syr SQ 08/04/24 08:59 40 mg QAM JUSTICE Administration Piperacillin Sod/Tazobactam Sod 4.5 gm in 100 mls @ 25 mls/hr 07/05/24 06:00 07/06/24 10:50 Zosyn IV 08/16/24 05:59 Infused Q8H [facility] Infusion Protocol Insulin Aspart 0 units 07/06/24 00:00 07/06/24 06:09 Insulin Aspart Per Unit Charge SC 08/05/24 00:00 1 units Q6 JUSTICE Administration Insulin Glargine 5 units 07/04/24 23:52 07/06/24 08:23 Lantus Per Unit Charge SQ 08/03/24 23:51 5 units BID JUSTICE Administration Multivitamins/Minerals 1 tab 07/05/24 09:00 07/06/24 08:23 Cerovite Adv Formula Tab PO 08/04/24 08:59 1 tab DAILY [facility]ICE Administration
--- NOTE | 2024-07-06 13:14 | Hospitalist Progress Note ---
Date of Service July 06, 2024 Assessment & Plan (1) Cellulitis of foot associated with diabetes mellitus: (2) Osteomyelitis of foot, right, acute: (3) Abscess of right foot: (4) Myositis of right foot: (5) Diabetes mellitus type 2 with complications: (6) Obesity (BMI 30.0-34.9): Plan Mr. Adan is a 63 yo gentleman with medical history significant for hyperlipidemia as per records, DM2 on oral medications, chronic venous insufficiency who is admitted for RLE cellulitis and abscess. Imaging reviewed possibiility for osteomyelitis in addition to abscess. Podiatry to take patient to OR for I&D as well as possible bone biopsy #RLE cellulitis c/f RLE foot OM #RLE abscess and myositis Podiatry was consulted and they think that differential diagnosis includes a diabetic foot infection, with a consideration of Charcot neuroarthropathy Continue Zosyn ESR 64 CRP 10.71 Monitor blood cultures, NGTD Podiatry consulted: OR today ID consulted for recommendations given likely IV abx needed #Uncontrolled DMTII continue SSI, elementary educator recommendations reviewed: increase home metformin 500mg bid upon d/c Dispo contingent on postop recovery and ID recommendations DVT lovenox Admission and Anticipated Discharge Date Admission Date: July 04, 2024 Subjective Patient resting in bed, denies any pain, just pressure in his foot Denies any fevers chills or other acute concerns awaiting I&D this afternoon Physical Exam Constitutional: WD/WN, vitals as above Respiratory: normal respiratory effort, lungs clear to auscultation Cardiovascular: RRR, no murmur, no edema Gastrointestinal (Abdomen): normal bowel sounds, soft, nontender, no hepatosplenomegaly Skin: RLE with erythema for forefoot but not extending outside of marked border , overlying nonpitting edema Results & Data Results & Data Vital Signs (Past 12 Hours) Vital Signs Temp Pulse Resp BP Pulse Ox O2 Del Method 07/06/24 09:48 Room Air 07/06/24 07:12 36.7 C 80 18 130/68 94 Room Air Laboratory Results Short CBC 07/06/24 Range/Units 08:34 WBC 7.11 (4.8-10.8) K/ul Hgb 12.9 L (14.0-18.0) g/dl Hct 37.8 L (42.0-52.0) % Plt Count 266 (130-400) K/uL BMP 07/06/24 08:34 Sodium 137 Potassium 4.4 Chloride 102 Carbon Dioxide 30 BUN 15 Creatinine 0.85 Glucose 179 H Calcium 8.8 Medications Administered Home Medications Medication Instructions Recorded Confirmed Last Taken acetaminophen 500 mg tablet 1,000 mg PO Q6H PRN Pain 07/04/24 07/04/24 Unknown cefadroxil 500 mg capsule 500 mg PO DAILY 07/04/24 07/04/24 07/04/24 clarithromycin 500 mg tablet 500 mg PO BID 07/04/24 07/04/24 07/04/24 ibuprofen 200 mg tablet (Advil) 400 mg PO Q6H PRN Pain 07/04/24 07/04/24 07/04/24 metformin 500 mg tablet 500 mg PO DAILY 07/04/24 07/04/24 07/04/24 multivitamin with minerals-folic 2 tab PO DAILY 07/04/24 07/04/24 07/04/24 acid 200 mcg chewable tablet (Multivitamin Gummies) Active Medications Generic Name Dose Route Start Last Admin Trade Name Freq PRN Reason Stop Dose Admin Calcium Carbonate 1,500 mg 07/05/24 09:07 07/05/24 09:30 Calcium Carbonate 500 Mg Chewable Tab PO 08/04/24 09:06 1,500 mg QID PRN Administration Indigestion Enoxaparin Sodium 40 mg 07/05/24 09:00 07/06/24 08:23 Enoxaparin Inj 40 Mg/0.4 Ml Syr SQ 08/04/24 08:59 40 mg QAM JUSTICE Administration Piperacillin Sod/Tazobactam Sod 4.5 gm in 100 mls @ 25 mls/hr 07/05/24 06:00 07/06/24 13:24 Zosyn IV 08/16/24 05:59 25 mls/hr Q8H JUSTICE Administration Protocol Insulin Aspart 0 units 07/06/24 00:00 07/06/24 12:52 Insulin Aspart Per Unit Charge SC 08/05/24 00:00 2 units Q6 JUSTICE Administration Insulin Glargine 5 units 07/04/24 23:52 07/06/24 08:23 Lantus Per Unit Charge SQ 08/03/24 23:51 5 units BID JUSTICE Administration Multivitamins/Minerals 1 tab 07/05/24 09:00 07/06/24 08:23 Cerovite Adv Formula Tab PO 08/04/24 08:59 1 tab DAILY JUSTICE Administration
--- NOTE | 2024-07-06 14:40 | Podiatry Progress Note ---
Date of Service July 06, 2024 Assessment & Plan (1) Abscess of right foot: (2) Myositis of right foot: (3) Diabetes mellitus type 2 with complications: (4) Obesity (BMI 30.0-34.9): (5) Cellulitis of foot associated with diabetes mellitus: Plan Right diabetic foot infection with abscess possible underlying osteomyelitis. Possible concomitant Charcot neuroarthropathy. - Order placed for high tide Cam walker right lower extremity. Patient okay to weight-bear as tolerated to the right foot in cam walker. - Plan for I&D of right foot with bone biopsy and second metatarsal as needed. Possible antibiotic bead placement. Will collect deep cultures intraoperatively. - Written informed consent reviewed with patient family present at bedside all questions answered, signed and witnessed. - Continue n.p.o. until postop Admission and Anticipated Discharge Date Admission Date: July 04, 2024 Subjective Patient seen resting comfortably in hospital bed. Denies nausea vomiting fever chills. Denies pain in the right foot. We reviewed at length surgical recommendation for I&D of the right foot with bone biopsy as needed and possible placement of antibiotic beads. All patient's questions are answered and written informed consent is signed and witnessed. Plan to move forward with procedure's afternoon between 3 and 4 PM. Patient has been n.p.o. since midnight. Review of Systems Review of Systems: Patient denies nausea, vomiting, fever, chills, shortness of breath, chest pain, right foot pain. Only complaint is increased redness and swelling in the right foot and leg. All other systems reviewed and negative unless stated in HPI. Physical Exam Physical Exam: Const: Appears well developed and well nourished. No signs of acute distress present. CV: Extremities: No cyanosis Capillary refill time is less than 2 seconds all digits of the bilateral foot. Posterior tibial and dorsalis pedis pulses are palpable bilateral. Lymph: No palpable or visible regional lymphadenopathy. Skin: Well-healed cicatrix plantar right foot subsecond metatarsal head. Neuro: Loss of protective sensation bilateral foot and ankle Psych: Mood/Affect: Mood is normal. Affect is normal. Cognition: Orientation is intact to person, place and time. Focused lower extremity musculoskeletal exam: Leg: No pain with compression of the calf muscle. Ankles: Normal to inspection and palpation. Pitting edema right distal leg and ankle. No tenderness bilaterally. Motor strength is intact. Range of motion pain-free and unlimited. Feet: Left foot: Normal to inspection and palpation. No obvious instability. Motor strength is intact. Range of motion pain-free and unlimited. Right foot: No open wound. Dislocation of the second MPJ. Erythema and edema isolated to the dorsal forefoot just proximal to the toes extending along the lateral foot to the ankle. Results & Data Results & Data Vital Signs (Past 12 Hours) Vital Signs Temp Pulse Resp BP Pulse Ox O2 Del Method 07/06/24 13:41 37 C 83 16 136/81 96 Room Air 07/06/24 09:48 Room Air 07/06/24 07:12 36.7 C 80 18 130/68 94 Room Air Laboratory Results White blood count 7.11 ESR 64 CRP 10.71 Coding Level of Care Code 66244 SUB INP/OBS CARE 2/35MIN Diagnoses Abscess of right foot L02.611 Infective myositis of right foot M60.073 Myositis type: infective Diabetes mellitus type 2 with complications E11.8 Obesity (BMI 30.0-34.9) E66.811 Cellulitis of foot associated with diabetes mellitus E11.628; L03.119 (2) Myositis of right foot Myositis type: infective Qualified Code(s): M60.073 - Infective myositis, right foot
[2024-07-06] MEDS ORDERED: MIDAZOLAM HCL 1 MG/ML 2ML VIAL ONE ×2 (15:25→15:52)
[2024-07-06] MEDS ORDERED: PROPOFOL IV EMULSION 10 MG/ML 20 ML VIAL IV ONE ×2 (15:26→16:01)
[2024-07-06] MEDS ORDERED: LIDOCAINE 2% 2 ML VIAL/AMP(20MG/ML) INFIL ONE (15:28)
[2024-07-06] MEDS ORDERED: ONDANSETRON INJ 2 MG/ML 2 ML VIAL ONE (15:28)
[2024-07-06] MEDS ORDERED: ONDANSETRON INJ 2 MG/ML 2 ML VIAL IV PRN (15:37)
[2024-07-06] MEDS ORDERED: fentaNYL citrate PF 100 MCG/2 ML VIAL IV PRN (15:37)
[2024-07-06] MEDS ORDERED: ATROPINE SULFATE 0.1 MG/ML 10ML SYR IV PRN (15:37)
[2024-07-06] MEDS ORDERED: ePHEDrine sulfate 50 MG/ML AMP IV PRN (15:37)
--- NOTE | 2024-07-06 15:37 | Anesthesiology Consultation ---
Date of Service July 06, 2024 Assessment & Plan (1) Encounter for pre-operative examination: Chart Review Chart Review: Acceptable Risk for Surgery and Patient NOT seen in Pre Admission Testing Consults Requested none ASA ASA3 Proposed Anesthesia Anesthesia Type: MAC Risk / Benefits Reviewed With: PT / POA / Parent / Guardian, Accepts Plan and Informed Consent Obtained History Surgery Operation Date: 07/06/24 07:00 Proposed Procedures p Right Foot Incision and Drainage, Possible Bone Biopsy, Possible Antibiotic Bead Placement - Memo Helton DPM Height/Weight Height: 6 ft 5 in Weight: 133.2 kg Allergies Allergy/AdvReac Type Severity Reaction Status Date / Time No Known Allergies Allergy Unverified 07/04/24 19:15 Medications Home Medications Medication Instructions Recorded Confirmed Last Taken acetaminophen 500 mg tablet 1,000 mg PO Q6H PRN Pain 07/04/24 07/04/24 Unknown cefadroxil 500 mg capsule 500 mg PO DAILY 07/04/24 07/04/24 07/04/24 clarithromycin 500 mg tablet 500 mg PO BID 07/04/24 07/04/24 07/04/24 ibuprofen 200 mg tablet (Advil) 400 mg PO Q6H PRN Pain 07/04/24 07/04/24 07/04/24 metformin 500 mg tablet 500 mg PO DAILY 07/04/24 07/04/24 07/04/24 multivitamin with minerals-folic 2 tab PO DAILY 07/04/24 07/04/24 07/04/24 acid 200 mcg chewable tablet (Multivitamin Gummies) Active Medications Generic Name Dose Route Start Last Admin Trade Name Freq PRN Reason Stop Dose Admin Calcium Carbonate 1,500 mg 07/05/24 09:07 07/05/24 09:30 Calcium Carbonate 500 Mg Chewable Tab PO 08/04/24 09:06 1,500 mg QID PRN Administration Indigestion Enoxaparin Sodium 40 mg 07/05/24 09:00 07/06/24 08:23 Enoxaparin Inj 40 Mg/0.4 Ml Syr SQ 08/04/24 08:59 40 mg QAM JUSTICE Administration Piperacillin Sod/Tazobactam Sod 4.5 gm in 100 mls @ 25 mls/hr 07/05/24 06:00 07/06/24 13:24 Zosyn IV 08/16/24 05:59 25 mls/hr Q8H JUSTICE Administration Protocol Insulin Aspart 0 units 07/06/24 00:00 07/06/24 12:52 Insulin Aspart Per Unit Charge SC 08/05/24 00:00 2 units Q6 JUSTICE Administration Insulin Glargine 5 units 07/04/24 23:52 07/06/24 08:23 Lantus Per Unit Charge SQ 08/03/24 23:51 5 units BID JUSTICE Administration Multivitamins/Minerals 1 tab 07/05/24 09:00 07/06/24 08:23 Cerovite Adv Formula Tab PO 08/04/24 08:59 1 tab DAILY JUSTICE Administration NPO Date Last Intake of Fluids: 07/05/24 Time Last Intake of Fluids: 22:00 Date Last Intake of Solids: 07/05/24 Time Last Intake of Solids: 18:00 Exercise / Class Metabolic Activity II 4-5 Yardwork/Stairs/Walk up hill Past Anesthesia History No Hx of Anesthesia Complications and No Family Hx of Anesthesia Complications History of PONV No Hx of PONV and No Hx of Motion Sickness Social History Smoking Status: Never smoker Hx Alcohol Use: Yes Alcohol type: beer alcohol intake frequency: holidays/special occasions only Hx Substance Use: No substance use type: does not use Physical Exam Vital Signs Last Vital Signs Temp 98.8 F 07/06/24 15:30 Pulse 80 07/06/24 15:30 Resp 20 07/06/24 15:30 BP 144/90 H 07/06/24 15:30 Pulse Ox 96 07/06/24 15:30 O2 Del Method Room Air 07/06/24 15:30 ENMT Mouth: no dentition abnormality Thyromental Distance: > or= 3.5 Finger Breadths Mallampati Class: II Neck normal visual inspection Respiratory normal respiratory effort Auscultation: lungs clear to auscultation bilaterally Cardiovascular Rate/Rhythm: regular rate and regular rhythm Neurologic Motor/Sensory: + sensory deficit (b/l LE neuropathy) Psychiatric Orientation: alert and oriented x 3 Testing Laboratory Results 07/06/24 08:34 07/06/24 08:34 07/04/24 20:23 Aerobic Blood Culture - Preliminary Blood No growth in Aerobic bottle after 24 hours. Anaerobic Blood Culture - Preliminary No growth in Anaerobic bottle after 24 hours. 07/04/24 19:36 Aerobic Blood Culture - Preliminary Blood No growth in Aerobic bottle after 24 hours. Anaerobic Blood Culture - Preliminary No growth in Anaerobic bottle after 24 hours. 07/06/24 07/06/24 07/06/24 15:28 11:52 06:04 POC Glucose 143 H 187 H 160 H
--- NOTE | 2024-07-06 15:48 | Operative Report ---
PG Post Operative Report Pre & Post Diagnosis Operation Date: 07/06/24 07:00 <No data on this case meets the specified criteria> I identified the patient and participated in the time-out.: Yes Procedure Operation Date: 07/06/24 07:00 1. Incision and drainage right foot Surgeon Memo Helton DPM Plastic Top Assembler none Estimated Blood Loss 5 Findings Consistent with Post-Op Diagnosis Somewhat viscous clear fluid within abscess with interspersed caseous/purulent exudate. Exposed bone of the second metatarsal diaphysis dorsal laterally. Specimens 1. Deep swab culture right foot 2. Soft tissue culture right foot 3. Bone second metatarsal for culture right foot Description of Procedure Patient brought in the operating room and remains on hospital bed for procedure. Timeout is held confirming correct patient, side, site, procedure with all necessary parties confirming. Following IV sedation local anesthesia obtained about the right ankle utilizing a total of 10 cc of one-to-one mixture of half percent Marcaine and 1% lidocaine plain in a modified ankle block fashion. Right lower extremity is scrubbed prepped and draped in the usual aseptic fashion to the level of the ankle. Attention is directed to the dorsal aspect of the foot and the soft tissue overlying the first interspace. Increased erythema and edema is focused over the first interspace of the right foot. MRI imaging indicates underlying fluid collection within the first interspace extending to the plantar aspect of the foot. Skin is incised with a clean 15 blade. Dissection is carried through subcutaneous tissue using sharp and blunt dissection to the level of subcutaneous abscess. All bleeding vessels are cauterized as necessary. Viscous purulent fluid with intermixed caseous particulate matter fluid is expressed equaling 5 ml. Culture swab x 1 was introduced to the wound for culture and sensitivity. After flushing the wound soft tissue culture collected from the wall of the abscess. Wound is flushed with copious amounts normal sterile saline. Abscess is explored and followed through the first interspace with blunt dissection to the level of the plantar foot tense the skin just plantar to the second metatarsal. All identified areas are deloculated and flushed with normal sterile saline. A curette and rongeur was utilized to remove any devitalized tissue from the wound bed. Wound is again flushed with copious amounts normal sterile saline. Dorsal medial aspect of the second metatarsal shaft is exposed within the wound bed which is devoid of periosteal tissue and a rongeur was utilized to collect bone for culture. Wound bed is evaluated and noted to be free of all necrotic appearing soft tissue and bone. Wound is again flushed with copious amounts normal sterile saline. 0.75 g of vancomycin powder was placed within the wound bed following all tracking to the level of the plantar foot. Wounds packed open with half-inch iodoform packing gauze extending through the interspace to the plantar foot. Foot is dressed with 4 x 4 fluff gauze ABD pad x 3 Crystal lightly applied Baldev bandage total dressings in place. Patient tolerated the procedure and anesthesia well. Is transferred recovery room vital signs stable and vascular status intact to all digits to the right foot. Following a brief period of postoperative monitoring in the recovery room patient is transferred back to his bed on the medical floor for ongoing IV antibiotics and medical management. Plan for patient be fit with cam walker tomorrow. Okay to weight-bear as torres erated in cam walker. I attest to the content of the Intraoperative Record and any orders documented therein. Any exceptions are noted below.
[2024-07-06] MEDS ORDERED: KETAMINE HCL 10MG/ML SYR ONE (15:53)
[2024-07-06] MEDS: BUPIVACAINE 0.5 % 5 MG/1 ML MPF 30ML VIAL ONE (16:14)
[2024-07-06] MEDS: VANCOMYCIN HCL 1000MG/20ML VIAL ONE (16:25)
[2024-07-06] MEDS: GENTAMICIN SULFATE 40 MG/ML 2 ML VIAL ONE (16:43)
--- NOTE | 2024-07-06 16:50 | Anesthesiology Progress Note ---
Date of Service July 06, 2024 Anesthesia Post Procedure Vital Signs Vital Signs: Temp Pulse Pulse Resp BP Pulse Ox O2 Del Method 07/06/24 15:30 98.8 F 80 20 144/90 H 96 Room Air 07/06/24 13:41 98.6 F 83 16 136/81 96 Room Air 07/06/24 09:48 Room Air 07/06/24 07:12 98.1 F 80 18 130/68 94 Room Air 07/05/24 19:11 98.2 F 88 16 143/82 H 94 Room Air Pain Intensity Right Foot: Pain Intensity: 3 Transfer of Care Handoff Completed per policy Notes Mental Status: alert / awake / arousable and participated in evaluation Patient Amnestic to Procedure: Yes Nausea / Vomiting: adequately controlled Pain: adequately controlled Airway Patency, RR, SpO2: stable & adequate BP & HR: stable & adequate Hydration State: stable & adequate Anesthetic Complications: no major complications apparent and Pt Satisfied with anesthetic care
[2024-07-06] MEDS ORDERED: Nursing to Pharmacy Communication SCH (19:45)
[2024-07-07] MEDS ORDERED: VANCOMYCIN CONSULT ACTIVE PRN (07:32)
[2024-07-07 09:00] LABS: Creatinine Clr Calc Pharmacy 132.7 ml/min
[2024-07-07] MEDS: VANCOMYCIN HCL 2,750 MG in SODIUM CHLORIDE 0.9% 500 ML IV ONE (10:12)
--- NOTE | 2024-07-07 13:24 | Pharmacy Report ---
Pharmacy PK ABX Note - Date of Service July 07, 2024 - Assessment and Plan Assessment 63 year old M receiving empiric vancomycin and ceftriaxone for treatment of right diabetic foot infection w/ possible underlying osteomyelitis. POD #1 s/p I&D of right foot. Pertinent microbiologic data includes: blood cultures x 2 show no growth at 48 hours, right foot cultures pending. Podiatry and ID consulted. Day # 1 of antimicrobial therapy. Plan Vancomycin * Loading dose: 2750 mg IV x 1 * Maintenance dose: 1250 mg IV every 8 hours * Regimen is predicted to achieve target AUC/ERICA of 400-600 mg/L.hr * Vanco level ordered for: 07/08/24 prior to 3rd maintenance dose Ceftriaxone * 2 g IV q24h - appropriately dosed Pharmacy will continue to follow and will adjust dose/frequency as necessary. Thank you. Pharmacy has transitioned to AUC monitoring for vancomycin. AUC/ERICA is the preferred PK/PD target and is associated with decreased risk of nephrotoxicity compared to traditional trough targets.
--- NOTE | 2024-07-07 14:42 | Hospitalist Progress Note ---
Date of Service July 07, 2024 Assessment & Plan (1) Cellulitis of foot associated with diabetes mellitus: (2) Osteomyelitis of foot, right, acute: (3) Abscess of right foot: (4) Myositis of right foot: (5) Diabetes mellitus type 2 with complications: (6) Obesity (BMI 30.0-34.9): Plan Mr. Adan is a 63 yo gentleman with medical history significant for hyperlipidemia as per records, DM2 on oral medications, chronic venous insufficiency who is admitted for RLE cellulitis and abscess. Imaging reviewed possibiility for osteomyelitis in addition to abscess. Patient doing well post operatively at this time, pending final ID recommendations #RLE cellulitis c/f RLE foot OM #RLE abscess and myositis Podiatry was consulted and they think that differential diagnosis includes a diabetic foot infection, with a consideration of Charcot neuroarthropathy Continue Zosyn ESR 64 CRP 10.71 Monitor blood cultures, NGTD Podiatry consulted: s/p I&D 07/06 and bone biopsy ID consulted for recommendations given likely IV abx needed: continue vanc and zosyn for now, likely final recommendations tomorrow #Uncontrolled DMTII continue SSI, clinical trial educator recommendations reviewed: increase home metformin 500mg bid upon d/c Dispo contingent on postop recovery and ID recommendations DVT lovenox Admission and Anticipated Discharge Date Admission Date: July 04, 2024 Subjective NAEO Reports significant improvement in RLE discomfort--near resolution of pressure he was feeling prior to ID reports feeling excited for cam boot and hopeful for his recovery Physical Exam Constitutional: WD/WN, vitals as above Respiratory: normal respiratory effort, lungs clear to auscultation Cardiovascular: RRR, no murmur, no edema Musculoskeletal: RLE dressing in place Results & Data Results & Data Vital Signs (Past 12 Hours) Vital Signs Temp Pulse Pulse Resp BP Pulse Ox O2 Del Method 07/07/24 11:17 36.8 C 74 16 128/74 97 Room Air 07/07/24 07:11 36.9 C 78 16 126/84 98 Room Air 07/07/24 04:13 36.3 C L 62 18 139/82 99 Room Air Laboratory Results BMP 07/07/24 08:17 Creatinine 0.86 Medications Administered Home Medications Medication Instructions Recorded Confirmed Last Taken acetaminophen 500 mg tablet 1,000 mg PO Q6H PRN Pain 07/04/24 07/04/24 Unknown cefadroxil 500 mg capsule 500 mg PO DAILY 07/04/24 07/04/24 07/04/24 clarithromycin 500 mg tablet 500 mg PO BID 07/04/24 07/04/24 07/04/24 ibuprofen 200 mg tablet (Advil) 400 mg PO Q6H PRN Pain 07/04/24 07/04/24 07/04/24 metformin 500 mg tablet 500 mg PO DAILY 07/04/24 07/04/24 07/04/24 multivitamin with minerals-folic 2 tab PO DAILY 07/04/24 07/04/24 07/04/24 acid 200 mcg chewable tablet (Multivitamin Gummies) Active Medications Generic Name Dose Route Start Last Admin Trade Name Freq PRN Reason Stop Dose Admin Calcium Carbonate 1,500 mg 07/05/24 09:07 07/05/24 09:30 Calcium Carbonate 500 Mg Chewable Tab PO 08/04/24 09:06 1,500 mg QID PRN Administration Indigestion Enoxaparin Sodium 40 mg 07/05/24 09:00 07/07/24 08:18 Enoxaparin Inj 40 Mg/0.4 Ml Syr SQ 08/04/24 08:59 40 mg QAM JUSTICE Administration Piperacillin Sod/Tazobactam Sod 4.5 gm in 100 mls @ 25 mls/hr 07/05/24 06:00 07/07/24 13:44 Zosyn IV 08/16/24 05:59 25 mls/hr Q8H JUSTICE Administration Protocol Insulin Aspart 0 units 07/06/24 21:00 07/07/24 12:47 Insulin Aspart Per Unit Charge SC 08/05/24 20:59 8 units ACHS JUSTICE Administration Insulin Glargine 5 units 07/04/24 23:52 07/07/24 08:17 Lantus Per Unit Charge SQ 08/03/24 23:51 5 units BID JUSTICE Administration Multivitamins/Minerals 1 tab 07/05/24 09:00 07/07/24 08:18 Cerovite Adv Formula Tab PO 08/04/24 08:59 1 tab DAILY JUSTICE Administration (4) Myositis of right foot Myositis type: infective Qualified Code(s): M60.073 - Infective myositis, right foot
--- NOTE | 2024-07-07 16:48 | Podiatry Progress Note ---
Date of Service July 07, 2024 Assessment & Plan (1) Abscess of right foot: (2) Myositis of right foot: (3) Diabetes mellitus type 2 with complications: (4) Charcot's joint of right foot: Plan Postop day 1 status post I&D of the right foot. Surgical dressing changed: Packing is pulled wound flushed and repacked with quarter inch iodoform packing gauze. - No purulent drainage from surgical wound. - Okay to weight-bear as tolerated in cam walker. - Intraoperative culture results pending: No organisms seen on Gram stain, many white blood cells. No growth to date. - Will continue to change dressing once daily flushing wound with normal sterile saline packing with quarter inch iodoform packing gauze followed by dry sterile dressing. Patient and family educated on home dressing changes. Patient okay for discharge from podiatry standpoint pending culture results and antibiotic adjustment as needed. Thank you for consulting podiatry to aid in the care of this patient. Will continue to follow his progress while he remains in house. Will follow-up with patient in the wound center within 1 week of discharge. Admission and Anticipated Discharge Date Admission Date: July 04, 2024 Subjective Patient seen resting comfortably in hospital bed with surgical dressing in place postop day 1 status post I&D abscess of the right foot. Patient's present at bedside. He did receive a cam walker from the orthotics team earlier today and reports adequate fit and received education on donning and doffing the boot. Patient understands he is to wear cam walker at all times while ambulating to the right foot. Review of Systems Review of Systems: Patient denies nausea, vomiting, fever, chills, shortness of breath, chest pain, right foot pain. Reports decreased pain in the right foot since time of procedure. All other systems reviewed and negative unless stated in HPI. Physical Exam Physical Exam: Const: Appears well developed and well nourished. No signs of acute distress present. CV: Extremities: No cyanosis Capillary refill time is less than 2 seconds all digits of the bilateral foot. Posterior tibial and dorsalis pedis pulses are palpable bilateral. Lymph: No palpable or visible regional lymphadenopathy. Skin: Well-healed cicatrix plantar right foot subsecond metatarsal head. Neuro: Loss of protective sensation bilateral foot and ankle Psych: Mood/Affect: Mood is normal. Affect is normal. Cognition: Orientation is intact to person, place and time. Focused lower extremity musculoskeletal exam: Leg: No pain with compression of the calf muscle. Ankles: Normal to inspection and palpation. Pitting edema right distal leg and ankle. No tenderness bilaterally. Motor strength is intact. Range of motion pain-free and unlimited. Feet: Left foot: Normal to inspection and palpation. No obvious instability. Motor strength is intact. Range of motion pain-free and unlimited. Right foot: Decreased erythema and edema to the dorsal and lateral foot since preoperative.. There is persistent erythema surrounding the lateral ankle. Surgical wound was partially reapproximated with 4-0 nylon suture this portion of the wound remains well-approximated with sutures intact. The central portion of the wound is packed open with half-inch iodoform packing gauze and there is moderate sanguinous drainage to the dressing. Packing is removed with slight discoloration to the packing likely from vancomycin powder and hematoma formation. Unable to express any purulent drainage from the wound. Wound is flushed and repacked with quarter inch iodoform packing gauze. Results & Data Results & Data Vital Signs (Past 12 Hours) Vital Signs Temp Pulse Resp BP Pulse Ox O2 Del Method 07/07/24 15:35 37.2 C 67 16 132/79 95 Room Air 07/07/24 11:17 36.8 C 74 16 128/74 97 Room Air 07/07/24 07:11 36.9 C 78 16 126/84 98 Room Air Coding Level of Care Code 00019 SUB INP/OBS CARE 2/35MIN Diagnoses Abscess of right foot L02.611 Infective myositis of right foot M60.073 Myositis type: infective Diabetes mellitus type 2 with complications E11.8 Charcot's joint of right foot M14.671 (2) Myositis of right foot Myositis type: infective Qualified Code(s): M60.073 - Infective myositis, right foot
[2024-07-07] MEDS: VANCOMYCIN HCL 1,250 MG in SODIUM CHLORIDE 0.9% 250 ML IV SCH (17:51)
[2024-07-08 09:10] LABS: Hematocrit (blood only) 38.8 % (42.0-52.0); Mean Corpuscular Hemoglobin 29.6 pg (25.0-34.0); Mean Corpuscular Hgb Conc 33.5 g/dL (32.0-36.0); Mean Corpuscular Volume 88.4 fL (80.0-100.0); Mean Platelet Volume 9.5 fL (9.4-12.4); Platelet Count 292 K/uL (130-400); RDW Coefficient of Variation 11.9 % (11.5-14.5); RDW Standard Deviation 38.4 fL (36.4-46.3); Red Blood Count 4.39 M/uL (4.70-6.10); White Blood Count 7.02 K/ul (4.8-10.8)
[2024-07-08] MEDS: VANCOMYCIN LEVEL ONE (09:11)
[2024-07-08 09:25] LABS: Calcium 8.9 mg/dl (8.6-10.3); Creatinine Clr Calc Pharmacy 129.7 ml/min; Potassium 4.4 mmol/L (3.5-5.1)
--- NOTE | 2024-07-08 11:46 | Hospitalist Progress Note ---
Date of Service July 08, 2024 Assessment & Plan (1) Cellulitis of foot associated with diabetes mellitus: (2) Osteomyelitis of foot, right, acute: (3) Abscess of right foot: (4) Myositis of right foot: (5) Diabetes mellitus type 2 with complications: (6) Obesity (BMI 30.0-34.9): Plan Mr. Adan is a 63 yo gentleman with medical history significant for hyperlipidemia as per records, DM2 on oral medications, chronic venous insufficiency who is admitted for RLE cellulitis and abscess. Imaging reviewed possibiility for osteomyelitis in addition to abscess. Patient doing well post operatively at this time, pending final ID recommendations Discussed with Dr Hua--will need to await final culture prior to dispo #RLE cellulitis c/f RLE foot OM #RLE abscess and myositis Podiatry was consulted and they think that differential diagnosis includes a diabetic foot infection, with a consideration of Charcot neuroarthropathy Continue Zosyn ESR 64 CRP 10.71 Monitor blood cultures, NGTD Podiatry consulted: s/p I&D 07/06 and bone biopsy ID consulted for recommendations given likely IV abx needed: continue vanc and zosyn for now, #Uncontrolled DMTII continue SSI, certified breastfeeding educator recommendations reviewed: increase home metformin 500mg bid upon d/c Dispo contingent on postop recovery and ID recommendations DVT lovenox Admission and Anticipated Discharge Date Admission Date: July 04, 2024 Subjective NAEO Physical Exam Constitutional: WD/WN, vitals as above Respiratory: normal respiratory effort, lungs clear to auscultation Cardiovascular: RRR, no murmur, no edema Gastrointestinal (Abdomen): normal bowel sounds, soft, nontender, no hepatosplenomegaly Results & Data Results & Data Vital Signs (Past 12 Hours) Vital Signs Temp Pulse Resp BP Pulse Ox O2 Del Method 07/08/24 07:40 36.9 C 86 16 129/80 100 Room Air Laboratory Results Short CBC 07/08/24 Range/Units 08:49 WBC 7.02 (4.8-10.8) K/ul Hgb 13.0 L (14.0-18.0) g/dl Hct 38.8 L (42.0-52.0) % Plt Count 292 (130-400) K/uL BMP 07/08/24 08:49 Sodium 136 Potassium 4.4 Chloride 102 Carbon Dioxide 29 BUN 15 Creatinine 0.88 Glucose 257 H Calcium 8.9 Medications Administered Home Medications Medication Instructions Recorded Confirmed Last Taken acetaminophen 500 mg tablet 1,000 mg PO Q6H PRN Pain 07/04/24 07/04/24 Unknown cefadroxil 500 mg capsule 500 mg PO DAILY 07/04/24 07/04/24 07/04/24 clarithromycin 500 mg tablet 500 mg PO BID 07/04/24 07/04/24 07/04/24 ibuprofen 200 mg tablet (Advil) 400 mg PO Q6H PRN Pain 07/04/24 07/04/24 07/04/24 metformin 500 mg tablet 500 mg PO DAILY 07/04/24 07/04/24 07/04/24 multivitamin with minerals-folic 2 tab PO DAILY 07/04/24 07/04/24 07/04/24 acid 200 mcg chewable tablet (Multivitamin Gummies) Active Medications Generic Name Dose Route Start Last Admin Trade Name Freq PRN Reason Stop Dose Admin Calcium Carbonate 1,500 mg 07/05/24 09:07 07/05/24 09:30 Calcium Carbonate 500 Mg Chewable Tab PO 08/04/24 09:06 1,500 mg QID PRN Administration Indigestion Enoxaparin Sodium 40 mg 07/05/24 09:00 07/08/24 08:06 Enoxaparin Inj 40 Mg/0.4 Ml Syr SQ 08/04/24 08:59 40 mg QAM JUSTICE Administration Piperacillin Sod/Tazobactam Sod 4.5 gm in 100 mls @ 25 mls/hr 07/05/24 06:00 07/08/24 10:31 Zosyn IV 08/16/24 05:59 Infused Q8H JUSTICE Infusion Protocol Vancomycin HCl 1,250 mg/ 275 mls @ 200 mls/hr 07/07/24 18:00 07/08/24 12:13 Sodium Chloride IV 08/18/24 17:59 Infused Q8H JUSTICE Infusion Insulin Aspart 0 units 07/06/24 21:00 07/08/24 12:14 Insulin Aspart Per Unit Charge SC 08/05/24 20:59 9 units ACHS JUSTICE Administration Insulin Glargine 5 units 07/04/24 23:52 07/08/24 08:08 Lantus Per Unit Charge SQ 08/03/24 23:51 5 units BID JUSTICE Administration Multivitamins/Minerals 1 tab 07/05/24 09:00 07/08/24 08:05 Cerovite Adv Formula Tab PO 08/04/24 08:59 1 tab DAILY JUSTIEC Administration (4) Myositis of right foot Myositis type: infective Qualified Code(s): M60.073 - Infective myositis, right foot
--- NOTE | 2024-07-08 16:51 | Podiatry Progress Note ---
Date of Service July 08, 2024 Assessment & Plan (1) Abscess of right foot: (2) Charcot's joint of right foot: (3) Myositis of right foot: (4) Diabetes mellitus type 2 with complications: Plan Postop day 2 status post I&D of the right foot. Dressing changed: Packing is pulled wound flushed and repacked with quarter inch iodoform packing gauze. - No purulent drainage from surgical wound. - Okay to weight-bear as tolerated in cam walker. - Intraoperative culture results pending: No organisms seen on Gram stain, many white blood cells. No growth to date. - ID on board. Awaiting final culture results for antibiotic adjustment prior to discharge. - Will continue to change dressing once daily flushing wound with normal sterile saline packing with quarter inch iodoform packing gauze followed by dry sterile dressing. Patient and family educated on home dressing changes. Patient okay for discharge from podiatry standpoint pending culture results and antibiotic adjustment as needed. Thank you for consulting podiatry to aid in the care of this patient. Will continue to follow his progress while he remains in house. Will follow-up with patient in the wound center within 1 week of discharge. Admission and Anticipated Discharge Date Admission Date: July 04, 2024 Subjective Patient seen resting comfortably in hospital bed postop day 2 status post I&D of the left foot. Denies nausea vomiting fever chills. Denies pain in the right foot. Discussed importance of offloading the right lower extremity and protecting in the cam walker at all times while ambulating. No bacteria seen or growth to date on intraoperative cultures. Review of Systems Review of Systems: Patient denies nausea, vomiting, fever, chills, shortness of breath, chest pain, right foot pain. Reports decreased pain in the right foot since time of procedure. All other systems reviewed and negative unless stated in HPI. Physical Exam Physical Exam: Const: Appears well developed and well nourished. No signs of acute distress present. CV: Extremities: No cyanosis Capillary refill time is less than 2 seconds all digits of the bilateral foot. Posterior tibial and dorsalis pedis pulses are palpable bilateral. Lymph: No palpable or visible regional lymphadenopathy. Skin: Well-healed cicatrix plantar right foot subsecond metatarsal head. Neuro: Loss of protective sensation bilateral foot and ankle Psych: Mood/Affect: Mood is normal. Affect is normal. Cognition: Orientation is intact to person, place and time. Focused lower extremity musculoskeletal exam: Leg: No pain with compression of the calf muscle. Ankles: Normal to inspection and palpation. Pitting edema right distal leg and ankle. No tenderness bilaterally. Motor strength is intact. Range of motion pain-free and unlimited. Feet: Left foot: Normal to inspection and palpation. No obvious instability. Motor strength is intact. Range of motion pain-free and unlimited. Right foot: Decreased erythema and edema to the dorsal and lateral foot over the past 24 hours. Decreased erythema and edema to the lateral ankle. Surgical wound was partially reapproximated with 4-0 nylon suture this portion of the wound remains well-approximated with sutures intact. The central portion of the wound is packed open with quarter-inch iodoform packing gauze and there is moderate sanguinous drainage to the dressing. Unable to express any purulent drainage from the wound. Wound is flushed and repacked with quarter inch iodoform packing gauze. Results & Data Results & Data Vital Signs (Past 12 Hours) Vital Signs Temp Pulse Resp BP Pulse Ox O2 Del Method 07/08/24 14:19 36.8 C 74 16 136/85 98 Room Air 07/08/24 07:40 36.9 C 86 16 129/80 100 Room Air Coding Level of Care Code 16099 SUB INP/OBS CARE 235MIN Diagnoses Abscess of right foot L02.611 Charcot's joint of right foot M14.671 Infective myositis of right foot M60.073 Myositis type: infective Diabetes mellitus type 2 with complications E11.8 (3) Myositis of right foot Myositis type: infective Qualified Code(s): M60.073 - Infective myositis, right foot
[2024-07-08 17:10] LABS: C Reactive Protein 5.12 mg/dl (0-0.5)
[2024-07-08] MEDS: VANCOMYCIN HCL 1,500 MG in SODIUM CHLORIDE 0.9% 500 ML IV SCH (18:21)
--- NOTE | 2024-07-08 21:09 | Pharmacy Report ---
Pharmacy PK ABX Note - Date of Service July 08, 2024 - Assessment and Plan Assessment 07/08 * right foot cultures currently with no growth x 3, blood cultures negative at 48 hours * Random vancomycin level 11.2 mcg/ml predicts low end of goal, therefore will slightly increase dose to ensure therapeutic for osteo * ID consulted/following 07/07 63 year old M receiving empiric vancomycin and ceftriaxone for treatment of right diabetic foot infection w/ possible underlying osteomyelitis. POD #1 s/p I&D of right foot. Pertinent microbiologic data includes: blood cultures x 2 show no growth at 48 hours, right foot cultures pending. Podiatry and ID consulted. Day # 1 of antimicrobial therapy. Plan Vancomycin * Loading dose: 2750 mg IV x 1 * Maintenance dose: 1250 mg IV every 8 hours * Adjust to: 1500 mg q8H * Regimen is predicted to achieve target AUC/ERICA of 400-600 mg/L.hr * Vanco level ordered for: 07/09/24 @ 0900 Ceftriaxone * 2 g IV q24h - appropriately dosed Pharmacy will continue to follow and will adjust dose/frequency as necessary. Thank you. Pharmacy has transitioned to AUC monitoring for vancomycin. AUC/ERICA is the preferred PK/PD target and is associated with decreased risk of nephrotoxicity compared to traditional trough targets.
[2024-07-09 06:27] LABS: Creatinine Clr Calc Pharmacy 125.4 ml/min
[2024-07-09] MEDS: VANCOMYCIN LEVEL ONE (09:12)
--- NOTE | 2024-07-09 11:59 | Communication Note ---
Date of Service: July 09, 2024 Assessment & Plan (1) Abscess of right foot: (2) Osteomyelitis of foot, right, acute: (3) S/P I&D on 07/06/2024 (4) Diabetes mellitus type 2 with arthropathic complications (Charcot's) Plan - Since the intraop Cx remain negative, I will assume that the organisms involved are covered by the cefadroxil that the patient received for around 1 week prior to presentation. Therefore, I would recommend stopping all current antibiotics and starting on IV Unasyn. - He is to continue on IV Unasyn for a total of 6 weeks from the day of surgery with anticipated end date of Aug 17, 2024. - He will require weekly CBC and BMP (please fax to our office). - We will set an appointment for him in our [place] clinic in 8-12 weeks.
[2024-07-09] MEDS: AMPICILLIN/SULBACTAM SOD 1,500 MG/100 ML BAG IV SCH (12:09)
--- NOTE | 2024-07-09 12:13 | Hospitalist Progress Note ---
Date of Service July 09, 2024 Assessment & Plan (1) Cellulitis of foot associated with diabetes mellitus: (2) Osteomyelitis of foot, right, acute: (3) Abscess of right foot: (4) Myositis of right foot: (5) Diabetes mellitus type 2 with complications: (6) Obesity (BMI 30.0-34.9): Plan Mr. Adan is a 63 yo gentleman with medical history significant for hyperlipidemia as per records, DM2 on oral medications, chronic venous insufficiency who is admitted for RLE cellulitis and abscess. Imaging reviewed possibiility for osteomyelitis in addition to abscess. #RLE cellulitis c/f RLE foot OM s/p ID #RLE abscess and myositis Podiatry was consulted and they think that differential diagnosis includes a diabetic foot infection, with a consideration of Charcot neuroarthropathy ESR 64 CRP 10.71 Monitor blood cultures, NGTD Podiatry consulted: s/p I&D 07/06 and bone biopsy Discussed case in depth with Dr. Hua: "Since the intraop Cx remain negative, I will assume that the organisms involved are covered by the cefadroxil" - Discontinue Vanc/ZOsyn, start on IV Unasyn for a total of 6 weeks from the day of surgery with anticipated end date of Aug 17, 2024. - Start weekly CBC and BMP (please fax to our office). - Plan for ID follow up in [place] 6-8 weeks #Uncontrolled DMTII continue SSI, school vocational educator recommendations reviewed: increase home metformin 500mg bid upon d/c Dispo contingent on postop recovery and ID recommendations DVT lovenox Admission and Anticipated Discharge Date Admission Date: July 04, 2024 Subjective NAEO no pain no pain noted in RLE disappointed with IV abx but verbalized understanding agrees to PICC Physical Exam Constitutional: WD/WN, vitals as above Respiratory: normal respiratory effort, lungs clear to auscultation Cardiovascular: RRR, no murmur, no edema Gastrointestinal (Abdomen): normal bowel sounds, soft, nontender, no hepatosplenomegaly Results & Data Results & Data Vital Signs (Past 12 Hours) Vital Signs Temp Pulse Pulse Resp BP Pulse Ox O2 Del Method 07/09/24 11:50 36.9 C 70 18 158/88 H 99 Room Air 07/09/24 07:35 36.9 C 78 18 137/78 96 Room Air Laboratory Results [facility] 07/09/24 05:30 Creatinine 0.91 Medications Administered Home Medications Medication Instructions Recorded Confirmed Last Taken acetaminophen 500 mg tablet 1,000 mg PO Q6H PRN Pain 07/04/24 07/04/24 Unknown cefadroxil 500 mg capsule 500 mg PO DAILY 07/04/24 07/04/24 07/04/24 clarithromycin 500 mg tablet 500 mg PO BID 07/04/24 07/04/24 07/04/24 ibuprofen 200 mg tablet (Advil) 400 mg PO Q6H PRN Pain 07/04/24 07/04/24 07/04/24 multivitamin with minerals-folic 2 tab PO DAILY 07/04/24 07/04/24 07/04/24 acid 200 mcg chewable tablet (Multivitamin Gummies) metformin 500 mg tablet 500 mg PO BID 30 days #60 tabs 07/09/24 Unknown Active Medications Generic Name Dose Route Start Last Admin Trade Name Freq PRN Reason Stop Dose Admin Calcium Carbonate 1,500 mg 07/05/24 09:07 07/05/24 09:30 Calcium Carbonate 500 Mg Chewable Tab PO 08/04/24 09:06 1,500 mg QID PRN Administration Indigestion Enoxaparin Sodium 40 mg 07/05/24 09:00 07/09/24 07:13 Enoxaparin Inj 40 Mg/0.4 Ml Syr SQ 08/04/24 08:59 40 mg QAM JUSTICE Administration Insulin Aspart 0 units 07/06/24 21:00 07/09/24 07:48 Insulin Aspart Per Unit Charge SC 08/05/24 20:59 5 units ACHS JUSTICE Administration Insulin Glargine 5 units 07/04/24 23:52 07/09/24 07:47 Lantus Per Unit Charge SQ 08/03/24 23:51 5 units BID JUSTICE Administration Multivitamins/Minerals 1 tab 07/05/24 09:00 07/09/24 07:12 Cerovite Adv Formula Tab PO 08/04/24 08:59 1 tab DAILY JUSTICE Administration (4) Myositis of right foot Myositis type: infective Qualified Code(s): M60.073 - Infective myositis, right foot
[2024-07-10 06:58] LABS: Creatinine Clr Calc Pharmacy 150.2 ml/min
--- NOTE | 2024-07-10 15:37 | Hospitalist Progress Note ---
Date of Service July 10, 2024 Assessment & Plan (1) Cellulitis of foot associated with diabetes mellitus: (2) Osteomyelitis of foot, right, acute: (3) Abscess of right foot: (4) Myositis of right foot: (5) Diabetes mellitus type 2 with complications: (6) Obesity (BMI 30.0-34.9): Plan Mr. Adan is a 63 yo gentleman with medical history significant for hyperlipidemia as per records, DM2 on oral medications, chronic venous insufficiency who is admitted for RLE cellulitis and abscess. Imaging reviewed possibiility for osteomyelitis in addition to abscess. #RLE cellulitis c/f RLE foot OM s/p ID #RLE abscess and myositis Podiatry was consulted and they think that differential diagnosis includes a diabetic foot infection, with a consideration of Charcot neuroarthropathy ESR 64 CRP 10.71 Monitor blood cultures, NGTD Podiatry consulted: s/p I&D 07/06 and bone biopsy Discussed case in depth with Dr. Hua: "Since the intraop Cx remain negative, I will assume that the organisms involved are covered by the cefadroxil" - continue IV Unasyn for a total of 6 weeks from the day of surgery with anticipated end date of Aug 17, 2024. - Start weekly CBC and BMP (please fax to our office). - Plan for ID follow up in [place] 6-8 weeks #Uncontrolled DMTII continue SSI, certified breastfeeding educator recommendations reviewed: increase home metformin 500mg bid upon d/c Dispo contingent on home health arrangements DVT lovenox Admission and Anticipated Discharge Date Admission Date: July 04, 2024 Subjective NAEO ambulating the halls, no acute concerns, eager for d/c Physical Exam Constitutional: WD/WN, vitals as above Respiratory: normal respiratory effort, lungs clear to auscultation Cardiovascular: RRR, no murmur, no edema Gastrointestinal (Abdomen): normal bowel sounds, soft, nontender, no hepatosplenomegaly Results & Data Results & Data Vital Signs (Past 12 Hours) Vital Signs Temp Pulse Resp BP Pulse Ox O2 Del Method 07/10/24 07:55 36.6 C 82 18 133/72 100 Room Air Laboratory Results BMP 07/10/24 05:57 Creatinine 0.76 Medications Administered Home Medications Medication Instructions Recorded Confirmed Last Taken acetaminophen 500 mg tablet 1,000 mg PO Q6H PRN Pain 07/04/24 07/04/24 Unknown cefadroxil 500 mg capsule 500 mg PO DAILY 07/04/24 07/04/24 07/04/24 clarithromycin 500 mg tablet 500 mg PO BID 07/04/24 07/04/24 07/04/24 ibuprofen 200 mg tablet (Advil) 400 mg PO Q6H PRN Pain 07/04/24 07/04/24 07/04/24 multivitamin with minerals-folic 2 tab PO DAILY 07/04/24 07/04/24 07/04/24 acid 200 mcg chewable tablet (Multivitamin Gummies) metformin 500 mg tablet 500 mg PO BID 30 days #60 tabs 07/09/24 Unknown Active Medications Generic Name Dose Route Start Last Admin Trade Name Freq PRN Reason Stop Dose Admin Calcium Carbonate 1,500 mg 07/05/24 09:07 07/05/24 09:30 Calcium Carbonate 500 Mg Chewable Tab PO 08/04/24 09:06 1,500 mg QID PRN Administration Indigestion Enoxaparin Sodium 40 mg 07/05/24 09:00 07/10/24 07:17 Enoxaparin Inj 40 Mg/0.4 Ml Syr SQ 08/04/24 08:59 40 mg QAM JUSTICE Administration Heparin Sodium (Beef Lung) 5 ml 07/09/24 14:10 07/10/24 12:20 Heparin 10 Unit/Ml 5 Ml Flush FLUSH 08/08/24 14:09 5 ml PRN PRN Administration Flush Ampicillin Sodium/Sulbactam Sodium 1,500 mg in 100 mls @ 200 mls/hr 07/09/24 12:00 07/10/24 12:20 Unasyn IV 08/17/24 11:59 Infused Q6H JUSTICE Infusion Insulin Aspart 0 units 07/06/24 21:00 07/10/24 11:55 Insulin Aspart Per Unit Charge SC 08/05/24 20:59 8 units ACHS JUSTICE Administration Insulin Glargine 5 units 07/04/24 23:52 07/10/24 07:52 Lantus Per Unit Charge SQ 08/03/24 23:51 5 units BID JUSTICE Administration Multivitamins/Minerals 1 tab 07/05/24 09:00 07/10/24 07:18 Cerovite Adv Formula Tab PO 08/04/24 08:59 1 tab DAILY JUSTICE Administration (4) Myositis of right foot Myositis type: infective Qualified Code(s): M60.073 - Infective myositis, right foot
[2024-07-11 11:57] VITALS: PULSE 72; RESP 20; TEMP 98.6; O2SAT 95
--- NOTE | 2024-07-11 12:30 | Discharge Summary ---
Discharge Summary Date of Service July 11, 2024 Principal Dx & Hospital Course #1 = Principal Diagnosis (1) Cellulitis of foot associated with diabetes mellitus: (2) Osteomyelitis of foot, right, acute: (3) Abscess of right foot: (4) Myositis of right foot: (5) Diabetes mellitus type 2 with complications: (6) Obesity (BMI 30.0-34.9): Plan Mr. Adan is a 63 yo gentleman with medical history significant for hyperlipidemia as per records, DM2 on oral medications, chronic venous insufficiency who is admitted for RLE cellulitis and abscess. Imaging reviewed possibility for osteomyelitis in addition to abscess. Patient underwent ID which noted some bone necrosis therefore IV antibiotics started for 6 weeks. Given culutres were negative and patient was on multiple antibiotics prior to I&D, will continue coverage with unasyn. On day of discharge, patient was eating well, ambulating with cam boot, and denying any uncontrolled pain. Dressing was changed and wound evaluated by ortho without any new concerns. #RLE cellulitis c/f RLE foot OM s/p ID #RLE abscess and myositis Podiatry was consulted and they think that differential diagnosis includes a diabetic foot infection, with a consideration of Charcot neuroarthropathy ESR 64 CRP 10.71 Monitor blood cultures, NGTD Podiatry consulted: s/p I&D 07/06 and bone biopsy Discussed case in depth with Dr. Hua: "Since the intraop Cx remain negative, I will assume that the organisms involved are covered by the cefadroxil" - continue IV Unasyn for a total of 6 weeks from the day of surgery with anticipated end date of Aug 17, 2024. - Start weekly CBC and BMP (please fax to our office). 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 Medical history significant for hyperlipidemia as per records, DM2 on oral medications, chronic venous insufficiency. 2 weeks ago, patient noted right lower leg swelling which later moved to the right foot. No bleeding lesions noted. No recollection of trauma. No fever, no chills. No chest pain, no SOB. Patient prescribed oral cefadroxil course by PCP. No improvement after 1 week. New clarithromycin Rx prescribed today. [place] [facility] [place] [facility] [place]. Patient brought to ER by family for evaluation. 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 Exam Per Admitting Provider GENERAL: Comfortable, obese, slightly anxious, no respiratory distress SKIN: Normal color, warm HEENT: Partial alopecia, pink palpebral conjunctivae, no ptosis, dry buccal mucosa NECK : Supple, no tenderness CHEST : CTA, no tenderness HEART : RRR, no obvious murmurs ABDOMEN: Some distention, nontender EXTREMITIES : RLE swelling with tender right foot induration, palpable pulses, no other conspicuous deformities noted NEUROLOGIC : Coherent, no facial asymmetry, no other gross focality Discharge Exam Constitutional WD/WN, vitals as above Respiratory normal respiratory effort, lungs clear to auscultation Cardiovascular RRR, no murmur, no edema Gastrointestinal (Abdomen) normal bowel sounds, soft, nontender, no hepatosplenomegaly Updated Medication List Medication Instructions Recorded Confirmed Type acetaminophen 500 mg tablet 1,000 mg PO Q6H PRN Pain 07/04/24 07/04/24 History multivitamin with minerals-folic 2 tab PO DAILY 07/04/24 07/04/24 History acid 200 mcg chewable tablet (Multivitamin Gummies) metformin 500 mg tablet 500 mg PO BID 30 days #60 tabs 07/09/24 Rx Hospital Stay Data Consultations 07/04/24 22:34 Consult Podiatry Routine 07/04/24 22:50 ED Decision to Admit Stat 07/05/24 11:34 Consult Infectious Diseases Routine Procedures Performed Operation Date: 07/06/24 07:00 Actual Procedures p Right Foot Incision and Drainage(Right) - Memo Helton DPM Diagnostic Imagining Performed 07/04/24 22:31 US arterial duplex LE RT Stat 07/04/24 23:01 US leg [US venous doppler LE RT] Stat 07/05/24 01:20 MR foot RT wo/w con Routine Pending Results Patient Have Any Pending Studies at Discharge: No Discharge Instructions Given to Patient (Per Discharging Provider) You were admitted for right foot infection and noted to have an abscess. You underwent drainage of abscess and there was concern for bone involvement called osteomyelitis. You will continue IV antibiotics for 6 weeks. Your metformin was increased from 500mg daily to two times a day. It is imperative you continue lifestyle changes with an emphasis on your nutrition. Please keep a log of your blood sugars three times a day until your follow up with your PCP Total Time Total Time Spent Total Time Spent (In Minutes): 45
[2024-07-11 12:37] VITALS: BP 136/85
--- NOTE | 2024-07-11 13:10 | Podiatry Progress Note ---
Date of Service July 11, 2024 Assessment & Plan (1) Abscess of right foot: (2) Charcot's joint of right foot: (3) Myositis of right foot: (4) Diabetes mellitus type 2 with complications: Plan Postop day 2 status post I&D of the right foot. Dressing changed: Packing is pulled wound flushed and repacked with quarter inch iodoform packing gauze. - Okay to weight-bear as tolerated in cam walker. Encouraged to minimize weightbearing when feasible and elevate right lower extremity while at rest. - Intraoperative culture results pending: No organisms seen on Gram stain, many white blood cells. No growth to date. - PICC line in place with IV antibiotics as per infectious disease. - Will continue to change dressing once daily flushing wound with normal sterile saline packing with quarter inch iodoform packing gauze followed by dry sterile dressing. Patient and family educated on home dressing changes. Patient okay for discharge from podiatry standpoint. Wound center contacted and will reach out to patient to schedule appointment within the next 1 to 2 weeks for follow-up. Thank you for consulting podiatry to aid in the care of this patient. Admission and Anticipated Discharge Date Admission Date: July 04, 2024 Results & Data Results & Data Vital Signs (Past 12 Hours) Vital Signs Temp Pulse Pulse Pulse Resp BP BP 07/11/24 12:34 37.0 C 72 73 80 20 124/67 136/85 07/11/24 11:51 37.0 C 72 20 124/67 07/11/24 07:03 36.4 C L 80 16 132/70 Pulse Ox O2 Del Method 07/11/24 12:34 95 07/11/24 11:51 95 Room Air 07/11/24 07:03 99 Room Air Coding Diagnoses Abscess of right foot L02.611 Charcot's joint of right foot M14.671 Infective myositis of right foot M60.073 Myositis type: infective Diabetes mellitus type 2 with complications E11.8 (3) Myositis of right foot Myositis type: infective Qualified Code(s): M60.073 - Infective myositis, right foot
--- NOTE | 2024-07-12 14:27 | Coding Query ---
CODING QUERY FOR UNCONTROLLED DIABETES To promote full compliance with coding requirements relating to patient care, provider participation is requested in all cases of manager behavior uncertainty. Please assist us with the question(s) below: Coding Question: The term uncontrolled Diabetes was used throughout the record. To be able to code this diagnosis properly, could you please clarify the diagnosis below: ( ) Uncontrolled Diabetes meaning hypoglycemia ( x) Uncontrolled Diabetes meaning hyperglycemia ( ) Other (please specify) Principal Diagnosis: "that condition established after study, to be chiefly responsible for occasioning the admission of the patient to the hospital for care." Co-Existing Principal Diagnosis: "when two or more diagnoses equally meet the criteria for principal diagnosis as determined by the circumstances of admission, diagnostic work up, and/or therapy provided, and the Alphabetic Index, Tabular List, or another coding guideline does not provide sequencing direction, any one of the diagnoses may be sequenced first." "When the physician has documented what appears to be a current diagnosis in the body of the record, but has not included the diagnosis in the final diagnostic statement, the physician should be asked whether the diagnosis should be added." (Source Coding [facility] 2 QTR90. p3-4) JULY
== END 2024-07-11 13:23 | disposition home health service (06) | DRG 988 ==
LOC: ED 18:09 → 3N 22:28 → SUATTDRO 22:28 → 3N 23:40 → 3E 07-06 13:41